=== PATIENT | female | born 1950 | race Caucasian/White ===

== ENCOUNTER → 2016-04-16 | Outpatient (REF) | payer MEDICARE ==
[2016-04-16 17:47] LABS: PERCENT SATURATION 5.3 % (13.2-37.4)
[2016-04-16 17:53] LABS: CORTISOL AM 7.6 UG/DL (4.3-22.4)
[2016-04-21 00:08] LABS: RENIN LEVEL <0.15 ng/mL/hr (.)
== END ==
LOC: M LAB REF 16:20
DX: D64.9 Anemia, unspecified (principal); E87.6 Hypokalemia

== ENCOUNTER → 2016-08-15 | Outpatient (REF) | payer MEDICARE, MEDICAID ==
[2016-08-15 19:25] LABS: FOLATE 8.9 NG/ML; VITAMIN B12 LEVEL > 2000 PG/ML
[2016-08-15 19:42] LABS: FERRITIN 31 NG/ML (8-252); PERCENT SATURATION 17.9 % (13.2-37.4); TOTAL IRON BINDING CAPACITY 369 UG/DL (250-450)
== END ==
LOC: M LAB REF 16:31
PROVIDERS: ATTEND Family Medicine
DX: D64.9 Anemia, unspecified (principal)

== ENCOUNTER → 2017-05-03 | Outpatient (REF) | payer MEDICARE, MEDICAID ==
[2017-05-03 13:41] LABS: PREALBUMIN 25.9 MG/DL (20.0-40.0)
== END ==
LOC: M LAB REF 12:08
DX: R77.0 Abnormality of albumin (principal)
CPT/HCPCS: 84134

== ENCOUNTER → 2017-08-22 | Outpatient (REF) | payer MEDICARE, MEDICAID ==
[2017-08-22 20:02] LABS: PREALBUMIN 31.3 MG/DL (20.0-40.0)
== END ==
LOC: M LAB REF 17:52
DX: R63.4 Abnormal weight loss (principal)
CPT/HCPCS: 84134

== ENCOUNTER 2017-08-28 07:13 | Day surgery (SDC) | payer MEDICARE, MEDICAID ==
[2017-08-28] MEDS: MOXIFLOXACIN IN BSS 0.25MG/0.25ML INTRACAMERAL INJ (OR EYE ONLY)(J2280) As Ordered (06:31)
[~2017-08-28 07:13] MED LIST: ACETAMINOPHEN 325 MG TAB PO; PHENYLEPHRINE HCL 10 % OPHTH. SOL 5ML OD; PROPARACAINE 0.5% OPHTH SOL 15ML OD
[2017-08-28] MEDS ORDERED: TROPICAMIDE 1% OPHTH SOLN 2ML As Ordered (07:19)
[2017-08-28] MEDS ORDERED: CYCLOPENTOLATE 2% OPHTH SOLN 2ML BTL As Ordered (07:19)
[2017-08-28] MEDS ORDERED: PHENYLEPHRINE 2.5% OPHTH SOL 2ML As Ordered (07:19)
[2017-08-28] MEDS ORDERED: OFLOXACIN 0.3 % (OCUFLOX) OPTH SOL 5ML As Ordered (07:19)
[2017-08-28] MEDS ORDERED: TRIMETHOBENZAMIDE 300 MG CAP PO (07:30)
[2017-08-28] MEDS ORDERED: KETOROLAC 0.5% OPHTH SOLN OD (07:30)
[2017-08-28] MEDS: PHENYLEPHRINE 2.5% OPHTH SOL 2ML OD (07:54)
[2017-08-28] MEDS: TROPICAMIDE 1% OPHTH SOLN 2ML OD (07:54)
[2017-08-28] MEDS: CYCLOPENTOLATE 2% OPHTH SOLN 2ML BTL OD (07:54)
[2017-08-28] MEDS: OFLOXACIN 0.3 % (OCUFLOX) OPTH SOL 5ML OD (07:54)
[2017-08-28] MEDS: LIDOCAINE 3.5 % 1ML OPHTH TOPICAL GEL OU (07:55)
[2017-08-28] MEDS ORDERED: fentaNYL 100 MCG/2 ML INJECTION (J3010) As Ordered (08:46)
[2017-08-28] MEDS ORDERED: MIDAZOLAM INJ 2 MG/2 ML VIAL (J2250) As Ordered (08:46)
[2017-08-28] MEDS: TRIAMCINOLONE PRES FR 40 MG/ML 1ML(TRIESENCE)(OR EYE ONLY)(J3300 PER 1MG) As Ordered (08:53)
[2017-08-28] MEDS: POVIDONE-IODINE 5% OPHTH PREP SOL 30ML As Ordered (08:53)
[2017-08-28] MEDS: LIDOCAINE 1% SDV 5 ML VIAL As Ordered (08:54)
[2017-08-28] MEDS: HEALON DUET (HEALON 10MG/ML 0.55ML & HEALON ENDOCOAT 30MG/ML 0.85ML) As Ordered (08:54)
[2017-08-28] MEDS: BSS with VANC/TOB/EPI for EYE CASES IR (08:54)
[2017-08-28] MEDS: AcetaZOLAMIDE 500 MG ER CAP PO (09:31)
[2017-08-28] MEDS ORDERED: LR 1,000 ML IV (09:45)
[2017-08-28] MEDS ORDERED: ONDANSETRON 4MG/2ML VIAL (J2405) IV (09:45)
[2017-08-28] MEDS ORDERED: ACETAMINOPHEN TAB 650MG DOSE (2X325MG) PO (09:45)
== END 2017-08-28 09:43 | disposition home or self-care (01) ==
LOC: M SDC 07:13
DX: H26.9 Unspecified cataract (principal); I10 Essential (primary) hypertension; E78.00 Pure hypercholesterolemia, unspecified; E03.9 Hypothyroidism, unspecified; K21.9 Gastro-esophageal reflux disease without esophagitis; M19.90 Unspecified osteoarthritis, unspecified site; Z79.899 Other long term (current) drug therapy
CPT/HCPCS: 66984

== ENCOUNTER 2017-10-02 06:18 | Day surgery (SDC) | payer MEDICARE, MEDICAID ==
[~2017-10-02 06:18] MED LIST changes: -PHENYLEPHRINE HCL 10 % OPHTH. SOL 5ML OD; -PROPARACAINE 0.5% OPHTH SOL 15ML OD; +SLF 3 ML SYR IV
[2017-10-02] MEDS ORDERED: PHENYLEPHRINE HCL 10 % OPHTH. SOL 5ML OS (07:00)
[2017-10-02] MEDS: LIDOCAINE 3.5 % 1ML OPHTH TOPICAL GEL OU (07:20)
[2017-10-02] MEDS: OFLOXACIN 0.3 % (OCUFLOX) OPTH SOL 5ML OS (07:20)
[2017-10-02] MEDS: PHENYLEPHRINE 2.5% OPHTH SOL 2ML OS (07:20)
[2017-10-02] MEDS: TROPICAMIDE 1% OPHTH SOLN 2ML OS (07:20)
[2017-10-02] MEDS: CYCLOPENTOLATE 2% OPHTH SOLN 2ML BTL OS (07:21)
[2017-10-02] MEDS ORDERED: MIDAZOLAM INJ 2 MG/2 ML VIAL (J2250) As Ordered (08:39)
[2017-10-02] MEDS ORDERED: fentaNYL 100 MCG/2 ML INJECTION (J3010) As Ordered (08:39)
[2017-10-02] MEDS: POVIDONE-IODINE 5% OPHTH PREP SOL 30ML As Ordered (08:42)
[2017-10-02] MEDS: BSS with VANC/TOB/EPI for EYE CASES IR (08:43)
[2017-10-02] MEDS: HEALON DUET (HEALON 10MG/ML 0.55ML & HEALON ENDOCOAT 30MG/ML 0.85ML) As Ordered (08:43)
[2017-10-02] MEDS: LIDOCAINE 1% SDV 5 ML VIAL As Ordered (08:43)
[2017-10-02] MEDS: TRIAMCINOLONE PRES FR 40 MG/ML 1ML(TRIESENCE)(OR EYE ONLY)(J3300 PER 1MG) As Ordered (08:43)
[2017-10-02] MEDS: MOXIFLOXACIN IN BSS 0.25MG/0.25ML INTRACAMERAL INJ (OR EYE ONLY)(J2280) As Ordered (08:43)
[2017-10-02] MEDS ORDERED: TRIMETHOBENZAMIDE 300 MG CAP PO (09:15)
[2017-10-02] MEDS: AcetaZOLAMIDE 500 MG ER CAP PO (09:15)
== END 2017-10-02 09:39 | disposition home or self-care (01) ==
LOC: M SDC 06:18
DX: H25.9 Unspecified age-related cataract (principal); E78.5 Hyperlipidemia, unspecified; E03.9 Hypothyroidism, unspecified; I10 Essential (primary) hypertension; K21.9 Gastro-esophageal reflux disease without esophagitis; Z79.899 Other long term (current) drug therapy
CPT/HCPCS: 66984

== ENCOUNTER 2018-03-25 11:36 | Day surgery (SDC) | payer MEDICARE, MEDICAID ==
[~2018-03-25] VITALS: Ht 170.2 cm; Wt 72.5 kg
[~2018-03-25 11:36] MED LIST changes: -ACETAMINOPHEN 325 MG TAB PO; +AMLO5TAB6 PO; +ATEN50TA2 PO; +ATOR1TAB21 PO; +CALC500T49 PO; +DICL25TA PO; +FURO40TA2 PO; +HYDR-3713 PO; +LEVO25TA5 PO; +MIRA3350 PO; +OMEP20CA3 PO; +POTA1TAB14 PO; +PRAV20TA2 PO; -SLF 3 ML SYR IV; +SUCR1TAB56 PO; +TRAM50TA2 PO; +VITA-182 PO; +VITA500T3 PO
[2018-03-25] MEDS ORDERED: NS 1,000 ML IV ONE (12:45)
[2018-03-25] MEDS ORDERED: LIDOCAINE 2% INJ 100 MG/5 ML SDV (FOR ANES.) As Ordered ONE (13:04)
[2018-03-25] MEDS ORDERED: fentaNYL 100 MCG/2 ML INJECTION (J3010) As Ordered ONE (13:04)
[2018-03-25] MEDS ORDERED: PROPOFOL 200 MG/20 ML VIAL As Ordered ONE (13:04)
--- NOTE | 2018-03-25 13:54 | ROOR ---
Patient Name: Patria Hernandez Procedure Date: 03/25/2018 12:53 PM Date of : 1950 Age: 67 Room: [facility] Gender: Female Note Status: Finalized Procedure: Upper GI endoscopy Indications: Nausea with vomiting Providers: Cornell Smith MD Referring MD: Johnna Blue NP Requesting Provider: Medicines: Monitored Anesthesia Care Complications: No immediate complications. Procedure: Pre-Anesthesia Assessment: - Prior to the procedure, a History and Physical was performed, and patient medications and allergies were reviewed. The patient is competent. The risks and benefits of the procedure and the sedation options and risks were discussed with the patient. All questions were answered and informed consent was obtained. Patient identification and proposed procedure were verified by the physician, the nurse and the anesthesiologist in the procedure room. Mental Status Examination: alert and oriented. Airway Examination: normal oropharyngeal airway and neck mobility. Respiratory Examination: clear to auscultation. CV Examination: normal. Prophylactic Antibiotics: The patient does not require prophylactic antibiotics. Prior Anticoagulants: The patient has taken no previous anticoagulant or antiplatelet agents. ASA Grade Assessment: III - A patient with severe systemic disease. After reviewing the risks and benefits, the patient was deemed in satisfactory condition to undergo the procedure. The anesthesia plan was to use monitored anesthesia care (MAC). Immediately prior to administration of medications, the patient was re-assessed for adequacy to receive sedatives. The heart rate, respiratory rate, oxygen saturations, blood pressure, adequacy of pulmonary ventilation, and response to care were monitored throughout the procedure. The physical status of the patient was re-assessed after the procedure. The Endoscope was introduced through the mouth, and advanced to the jejunum. The upper GI endoscopy was accomplished without difficulty. The patient tolerated the procedure well. Findings: No gross lesions were noted in the entire esophagus. Evidence of a Damon-en-Y anastomosis was found in the stomach. This was characterized by erythema, friable mucosa, inflammation and ulceration. Biopsies were taken with a cold forceps for histology. Verification of patient identification for the specimen was done by the physician and nurse using the patient's name, date and medical record number. Estimated blood loss was minimal. Diffuse severe inflammation characterized by erosions, erythema, friability and shallow ulcerations was found in the gastric fundus and in the gastric body. Biopsies were taken with a cold forceps for histology. A single 10 mm sessile polyp with no bleeding and no stigmata of recent bleeding was found at the anastomosis. The polyp was removed with a cold biopsy forceps. Resection and retrieval were complete. For hemostasis, one hemostatic clip was successfully placed. There was no bleeding at the end of the procedure. A moderate benign-appearing, intrinsic stenosis that was traversed was found in the jejunum. Biopsies were taken with a cold forceps for histology. Impression: - No gross lesions in esophagus. - A Damon-en-Y anastomosis was found, characterized by friable mucosa, inflammation, erythema and ulceration. Biopsied. - Gastritis. Biopsied. - A single gastric polyp. Resected and retrieved. Clip was placed. - Jejunal stenosis. Biopsied. Recommendation: - Patient has a contact number available for emergencies. The signs and symptoms of potential delayed complications were discussed with the patient. Return to normal activities tomorrow. Written discharge instructions were provided to the patient. - Resume previous diet. - Continue present medications. - Await pathology results. - Use Protonix (pantoprazole) 40 mg PO twice daily - to be taken in morning (1/2 hour before breakfast) and at bedtime ( atleast 3 hours after last meal) for 3 months. - No ibuprofen, naproxen, or other non-steroidal anti-inflammatory drugs. - Repeat upper endoscopy in 3 months to check healing. - Based on the biopsy results you will receive a phone call from GI clinic in 2-3 weeks to review the pathology results AND/OR your results will be faxed to your Primary care physician. - Return to primary care physician. Cornell Smith MD Cornell Smith MD 03/25/2018 1:53:57 PM This report has been signed electronically. Number of Addenda: 0 Note Initiated On: 03/25/2018 12:53 PM Estimated Blood Loss: Estimated blood loss was minimal.
[2018-03-25 14:00] VITALS: BP 127/71
[2018-03-25] MEDS ORDERED: PANTOPRAZOLE 40MG INJ (PROTONIX) (C9113) IV ONE (14:00)
== END 2018-03-25 14:20 | disposition home or self-care (01) ==
LOC: M OPP 11:36
PROVIDERS: ATTEND Internal Medicine Gastroenterology
DX: K29.70 Gastritis, unspecified, without bleeding (principal); K31.7 Polyp of stomach and duodenum; K56.699 Other intestinal obstruction unspecified as to partial versus complete obstruction; Z98.84 Bariatric surgery status; R11.2 Nausea with vomiting, unspecified; I10 Essential (primary) hypertension; E03.9 Hypothyroidism, unspecified; Z79.899 Other long term (current) drug therapy
CPT/HCPCS: 43239; 88305; 88342; C9113; J3010

== ENCOUNTER → 2018-03-26 | Outpatient (CLI) | payer MEDICARE, MEDICAID ==
[~2018-03-26] MED LIST changes: +AMLO5TAB4 PO; -AMLO5TAB6 PO
[2018-03-26 11:51] LABS: BASO % 0.5 % (0.0-1.0); EOS % 0.4 % (0.0-3.0); HEMATOCRIT 36.2 % (36.0-47.0); HEMOGLOBIN 11.4 g/dl (12.0-15.5); LYMPH % 11.5 % (24.0-44.0); MEAN CORPUSCULAR HEMOGLOBIN 29.2 pg (27.0-33.0); MEAN CORPUSCULAR HGB CONC 31.5 g/dl (32.0-36.5); MEAN CORPUSCULAR VOLUME 92.6 fl (80.0-96.0); MONO # 0.4 10^3/uL (0.0-0.8); MONO % 4.8 % (0.0-5.0); NEUTROPHILS # 6.9 10^3/uL (1.8-7.7); PLATELET COUNT, AUTOMATED 412 10^3/uL (150-450); RED BLOOD COUNT 3.91 10^6/uL (4.00-5.40); WHITE BLOOD COUNT 8.4 10^3/uL (4.0-10.0)
[2018-03-26 12:24] LABS: BLOOD UREA NITROGEN 16 MG/DL (7-18); CARBON DIOXIDE LEVEL 27 MEQ/L (21-32); CHLORIDE LEVEL 110 MEQ/L (98-107); CREATININE FOR GFR 0.56 MG/DL (0.55-1.30); FERRITIN 50 NG/ML (8-252); GLOMERULAR FILTRATION RATE > 60.0 (>45); GLUCOSE, FASTING 79 MG/DL (70-100); IRON (FE) 51 UG/DL (50-170); PERCENT SATURATION 21.3 % (13.2-45.0); POTASSIUM SERUM 3.5 MEQ/L (3.5-5.1); SODIUM LEVEL 145 MEQ/L (136-145); TOTAL IRON BINDING CAPACITY 240 UG/DL (250-450)
== END ==
LOC: M LAB 11:27
PROVIDERS: ATTEND Internal Medicine Gastroenterology
DX: R11.2 Nausea with vomiting, unspecified (principal); K29.61 Other gastritis with bleeding

== ENCOUNTER → 2018-04-25 | Outpatient (CLI) | payer MEDICARE, MEDICAID ==
[~2018-04-25] MED LIST changes: -AMLO5TAB4 PO; +AMLO5TAB6 PO; +GLUCAGON FOR INJ 1 MG VIAL (J1610) As Ordered ONE; +ISOVUE-370 76% 100ML VIAL (Q9967) As Ordered ONE; +VoLumen 0.1% SUSPENSION 450ML BOTTLE As Ordered ONE
--- NOTE | 2018-04-25 15:45 | REP ---
CT enterography: With IV and oral contrast. History: Abnormal weight loss. Bariatric surgery. Comparison study: February 28, 2016. CT enterography Technique: The patient ingested oral Volumen for PO contrast per protocol. 0.6 mg of intravenous glucagon is administered. 100 ml of Isovue 370 is given intravenously for intravenous contrast. Helical scanning is acquired. Arterial phase and delayed phase imaging was acquired. Thick slab coronal and sagittal MIP images are generated. In addition coronal and sagittal multiplanar re-formation images are generated and reviewed along with axial images. CT enterography findings: Preliminary digital framing carpenter radiograph demonstrates an unremarkable bowel gas pattern. There are multiple surgical clips in the upper abdomen on the right and the left. A granuloma is seen in the left base. Axial CT images confirm the densely calcified benign granuloma in the left lower lobe and a second granuloma which is smaller a little more laterally. Both of these are unchanged from the February 2016 prior study. There is mild diffuse fatty infiltration of the liver. No focal liver mass lesion is seen. The gallbladder surgically absent. There is spray artifact from the numerous sutures in the left upper quadrant. No splenic abnormality is seen. No abnormal fluid collection is seen. No adrenal lesion is observed. Pancreas appears unremarkable. The kidneys enhance symmetrically and are morphologically intact. There is a subcentimeter cyst in the upper pole cortex of the left kidney. 8 mm. There is an intrarenal calculus in the lower pole collecting system of the left kidney 3 mm. There is no evidence of hydronephrosis. No retroperitoneal mass or adenopathy is seen. The celiac and superior mesenteric axes are patent without evidence of stenosis. The inferior mesenteric artery is patent. There is no evidence of bowel wall thickening or hyper enhancement. No obstructive lesion is seen. Maximum intensity projection images show no evidence of mucosal lesion or mass in the GI tract. There are degenerative spondylosis changes and scoliosis in the lumbar spine. No bony destructive lesion is appreciated. There is an old healed fracture of the inferior pubic ramus on the right and the superior pubic ramus on the right. No acute fracture is seen. Impression: Mild fatty infiltration of the liver. Status post gastric bypass. Intrarenal nephrolithiasis lower pole left kidney. Small left renal cyst. Tortuous aorta and lumbar scoliosis. Otherwise negative CT enterography. Electronically Signed by Corbin Olguin MD 04/25/2018 08:00 P
== END ==
LOC: M RAD 09:19
PROVIDERS: ATTEND Internal Medicine Gastroenterology
DX: R63.4 Abnormal weight loss (principal); Z98.84 Bariatric surgery status
CPT/HCPCS: 74177; J1610; Q9967

== ENCOUNTER → 2018-05-01 | Outpatient (REF) | payer MEDICARE, MEDICAID ==
[~2018-05-01] MED LIST changes: -GLUCAGON FOR INJ 1 MG VIAL (J1610) As Ordered ONE; -ISOVUE-370 76% 100ML VIAL (Q9967) As Ordered ONE; -VoLumen 0.1% SUSPENSION 450ML BOTTLE As Ordered ONE
[2018-05-01 16:22] LABS: ALBUMIN 2.4 GM/DL (3.2-5.2); ALT/SGPT 18 U/L (12-78); BILIRUBIN,TOTAL 0.3 MG/DL (0.2-1.0); BLOOD UREA NITROGEN 18 MG/DL (7-18); CALCIUM LEVEL 8.5 MG/DL (8.8-10.2); CARBON DIOXIDE LEVEL 26 MEQ/L (21-32); CHLORIDE LEVEL 105 MEQ/L (98-107); CREATININE FOR GFR 0.91 MG/DL (0.55-1.30); GLOMERULAR FILTRATION RATE > 60.0 (>45); GLUCOSE, FASTING 87 MG/DL (70-100); POTASSIUM SERUM 3.3 MEQ/L (3.5-5.1); SODIUM LEVEL 142 MEQ/L (136-145); TOTAL PROTEIN 4.7 GM/DL (6.4-8.2)
[2018-05-05 07:56] LABS: VITAMIN B12 LEVEL > 2000 PG/ML (232-1245)
== END ==
LOC: M SFHCPLAZ 13:59
PROVIDERS: ATTEND Nurse Practitioner Adult Health
DX: I10 Essential (primary) hypertension (principal); E03.9 Hypothyroidism, unspecified; E53.8 Deficiency of other specified B group vitamins
CPT/HCPCS: 36415; 80053; 82607; 84443; G0463

== ENCOUNTER 2018-06-06 10:36 | Day surgery (SDC) | payer MEDICARE, MEDICAID ==
[~2018-06-06] VITALS: Ht 170.2 cm; Wt 64.4 kg
[~2018-06-06 10:36] MED LIST changes: +NS 1,000 ML IV ONE; +PANT40TA3 PO; +RANI150T PO; +ZOFR4TAB16 PO
[2018-06-06] MEDS ORDERED: PROPOFOL 200 MG/20 ML VIAL As Ordered ONE ×2 (11:41→13:11)
[2018-06-06] MEDS ORDERED: LIDOCAINE 2% INJ 100 MG/5 ML SDV (FOR ANES.) As Ordered ONE (11:42)
[2018-06-06] MEDS ORDERED: fentaNYL 100 MCG/2 ML INJECTION (J3010) As Ordered ONE (12:54)
--- NOTE | 2018-06-06 13:39 | ROOR ---
Patient Name: Patria Hernandez Procedure Date: 06/06/2018 12:50 PM Date of : 1950 Age: 68 Room: [facility] Gender: Female Note Status: Finalized Procedure: Upper GI endoscopy Indications: Management of operative complication: Dilation of anastomotic stricture, Persistent vomiting Providers: Cornell Smith MD Referring MD: Johnna Blue NP Requesting Provider: Medicines: Monitored Anesthesia Care Complications: No immediate complications. Procedure: Pre-Anesthesia Assessment: - Prior to the procedure, a History and Physical was performed, and patient medications and allergies were reviewed. The patient is competent. The risks and benefits of the procedure and the sedation options and risks were discussed with the patient. All questions were answered and informed consent was obtained. Patient identification and proposed procedure were verified by the physician, the nurse and the anesthesiologist in the procedure room. Mental Status Examination: alert and oriented. Airway Examination: normal oropharyngeal airway and neck mobility. Respiratory Examination: clear to auscultation. CV Examination: normal. Prophylactic Antibiotics: The patient does not require prophylactic antibiotics. Prior Anticoagulants: The patient has taken no previous anticoagulant or antiplatelet agents. ASA Grade Assessment: III - A patient with severe systemic disease. After reviewing the risks and benefits, the patient was deemed in satisfactory condition to undergo the procedure. The anesthesia plan was to use monitored anesthesia care (MAC). Immediately prior to administration of medications, the patient was re-assessed for adequacy to receive sedatives. The heart rate, respiratory rate, oxygen saturations, blood pressure, adequacy of pulmonary ventilation, and response to care were monitored throughout the procedure. The physical status of the patient was re-assessed after the procedure. The Endoscope was introduced through the mouth, and advanced to the efferent jejunal loop. The upper GI endoscopy was accomplished without difficulty. The patient tolerated the procedure well. Findings: The examined esophagus was normal. Evidence of a gastrojejunostomy was found in the anastomosis. This was characterized by congestion, erosion, erythema, inflammation and ulceration. An endoclip was found at the anastomosis. A severe benign-appearing, intrinsic stenosis that was traversed was found in the jejunum. A TTS dilator was passed through the scope. Dilation with a 10-11-12 mm anastomotic balloon dilator was performed. The dilation site was examined and showed mild mucosal disruption, moderate improvement in luminal narrowing, no bleeding and no perforation. Impression: - Normal esophagus. - A gastrojejunostomy was found, characterized by inflammation, congestion, erosion, erythema and ulceration. - An endoclip was found in the stomach. - Jejunal stenosis. Dilated. - No specimens collected. Recommendation: - Patient has a contact number available for emergencies. The signs and symptoms of potential delayed complications were discussed with the patient. Return to normal activities tomorrow. Written discharge instructions were provided to the patient. - Full liquid diet for 2 days, then advance as tolerated to pureed diet. - Continue present medications. - Follow an antireflux regimen. - Use Protonix (pantoprazole) 40 mg PO twice daily - to be taken in morning (1/2 hour before breakfast) and at bedtime ( atleast 3 hours after last meal) for 3 months. 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 for 3 months. - Use sucralfate suspension 1 gram PO QID for 3 months. - Repeat upper endoscopy in 3 months for retreatment. - Return to GI clinic in [facility] (address [address], [address], [place], [address]) in 4 -- 6 weeks. Please call GI clinic @ [phone] for apppointment date and time. - Return to primary care physician. Cornell Smith MD Cornell Smith MD 06/06/2018 1:39:35 PM This report has been signed electronically. Number of Addenda: 0 Note Initiated On: 06/06/2018 12:50 PM Estimated Blood Loss: Estimated blood loss was minimal.
[2018-06-06 14:10] VITALS: BP 123/75
== END 2018-06-06 14:12 | disposition home or self-care (01) ==
LOC: M OPP 10:36
PROVIDERS: ATTEND Internal Medicine Gastroenterology
DX: Z98.0 Intestinal bypass and anastomosis status (principal); T18.2XXA Foreign body in stomach, initial encounter; K56.699 Other intestinal obstruction unspecified as to partial versus complete obstruction; K91.89 Other postprocedural complications and disorders of digestive system; R11.10 Vomiting, unspecified; Z79.899 Other long term (current) drug therapy; Z98.84 Bariatric surgery status; Y92.89 Other specified places as the place of occurrence of the external cause
CPT/HCPCS: 43245; J3010

== ENCOUNTER 2018-07-21 12:05 | Day surgery (SDC) | payer MEDICARE, MEDICAID ==
[~2018-07-21] VITALS: Ht 170.2 cm; Wt 63.0 kg
[~2018-07-21 12:05] MED LIST changes: +CALC500T68 PO; +LR 1,000 ML IV ONE; -NS 1,000 ML IV ONE; +VITAD1000T PO
[2018-07-21] MEDS ORDERED: PROPOFOL 500 MG/50 ML VIAL As Ordered ONE (13:22)
[2018-07-21] MEDS ORDERED: LIDOCAINE 2% INJ 100 MG/5 ML SDV (FOR ANES.) As Ordered ONE (13:22)
[2018-07-21] MEDS ORDERED: fentaNYL 100 MCG/2 ML INJECTION (J3010) As Ordered ONE (13:46)
[2018-07-21] MEDS ORDERED: ISOVUE-300 61% 50ML VIAL (Q9967) As Ordered ONE (13:50)
[2018-07-21] MEDS ORDERED: PROPOFOL 200 MG/20 ML VIAL As Ordered ONE (15:00)
[2018-07-21] MEDS ORDERED: PHENYLephrine HCL 500 MCG/5 ML (100MCG/ML) SYRINGE (J2370) As Ordered ONE (15:17)
[2018-07-21] MEDS ORDERED: ONDANSETRON 4MG/2ML VIAL (J2405) IV PRN (16:00)
[2018-07-21] MEDS ORDERED: HYDROMORPHONE HCL 0.5 MG/ 0.5 ML SYRINGE (J1170 PER 1) IV PRN (16:00)
[2018-07-21] MEDS ORDERED: fentaNYL 100 MCG/2 ML INJECTION (J3010) IV PRN (16:00)
[2018-07-21] MEDS ORDERED: PERCOCET 5MG/325MG TAB PO PRN (16:00)
[2018-07-21] MEDS ORDERED: LR 1,000 ML IV SCH (16:00)
--- NOTE | 2018-07-21 16:01 | REP ---
TWO-VIEW ABDOMEN: 50 views. HISTORY: Gastrojejunal anastomotic stenosis. 47 seconds of fluoroscopy time was utilized. FINDINGS: A sequence of 50 last image hold fluoroscopically obtained intraprocedural spot radiographs document endoscopic cannulation and manipulation. Electronically Signed by Corbin Olguin MD 07/21/2018 04:54 P
--- NOTE | 2018-07-21 16:27 | ROOR ---
Patient Name: Patria Hernandez Procedure Date: 07/21/2018 2:00 PM Date of : 1950 Age: 68 Room: Main OR Gender: Female Note Status: Finalized Procedure: Upper GI endoscopy Indications: Post-bariatric anastomotic stenosis, For therapy of post-bariatric anastomotic stenosis, Management of operative complication: Dilation of anastomotic stricture Providers: oCrnell Smith MD Referring MD: Johnna ALVARADO NP Requesting Provider: Medicines: Monitored Anesthesia Care Complications: No immediate complications. Procedure: Pre-Anesthesia Assessment: - Prior to the procedure, a History and Physical was performed, and patient medications and allergies were reviewed. The patient is competent. The risks and benefits of the procedure and the sedation options and risks were discussed with the patient. All questions were answered and informed consent was obtained. Patient identification and proposed procedure were verified by the physician, the nurse and the anesthesiologist in the procedure room. Mental Status Examination: alert and oriented. Airway Examination: normal oropharyngeal airway and neck mobility. Respiratory Examination: clear to auscultation. CV Examination: normal. Prophylactic Antibiotics: The patient does not require prophylactic antibiotics. Prior Anticoagulants: The patient has taken no previous anticoagulant or antiplatelet agents. ASA Grade Assessment: II - A patient with mild systemic disease. After reviewing the risks and benefits, the patient was deemed in satisfactory condition to undergo the procedure. The anesthesia plan was to use monitored anesthesia care (MAC). Immediately prior to administration of medications, the patient was re-assessed for adequacy to receive sedatives. The heart rate, respiratory rate, oxygen saturations, blood pressure, adequacy of pulmonary ventilation, and response to care were monitored throughout the procedure. The physical status of the patient was re-assessed after the procedure. The Endoscope was introduced through the mouth, and advanced to the efferent jejunal loop. The upper GI endoscopy was accomplished without difficulty. The patient tolerated the procedure well. Findings: No gross lesions were noted in the entire esophagus. Evidence of a Damon-en-Y anastomosis was found in the gastric body. This was characterized by moderate stenosis, ulceration and an intact staple line. A fistula is noted, which was connecting to remanant stomach, confirmed by injecting contrast though the fistula using sphincterotome. No leakage of contrast. An 80 mm long 20/22 mm deployed diameter Hanaro ( olympus) stent was placed at the gastro-jejunal and jejunal stricture due to stricutres being non reponsive to balloon dilations. The stent was successfully placed. For location marking and fixing the stent in place, two hemostatic clips were successfully placed in stomach/ proximal end of stent. There was no bleeding at the end of the procedure. A severe benign-appearing, intrinsic stenosis that was traversed was found in the jejunum. Impression: - No gross lesions in esophagus. - A Damon-en-Y anastomosis was found, characterized by moderate stenosis, an intact staple line and ulceration. A covered metal stent stent was placed. Clips placed to secure stent. - Jejunal stenosis. - No specimens collected. Recommendation: - Patient has a contact number available for emergencies. The signs and symptoms of potential delayed complications were discussed with the patient. Return to normal activities tomorrow. Written discharge instructions were provided to the patient. - The patient will be observed post-procedure, until all discharge criteria are met. - Clear liquid diet for 1 day, then advance as tolerated to soft diet. - Continue present medications. - Await pathology results. - Repeat upper endoscopy in 3 weeks stent removal and if needed re-dilate strictures. - Telephone GI clinic to schedule appointment in 2 weeks. - Return to primary care physician. Cornell Smith MD Cornell Smith MD 07/21/2018 4:26:48 PM Electronically signed by Cornell Smith MD Number of Addenda: 0 Note Initiated On: 07/21/2018 2:00 PM Estimated Blood Loss: Estimated blood loss was minimal.
[2018-07-21 17:00] VITALS: BP 108/60
[2018-07-21] MEDS ORDERED: CEPACOL LOZENGE PO PRN (17:00)
== END 2018-07-21 17:00 | disposition home or self-care (01) ==
LOC: M SDC 12:05
PROVIDERS: ATTEND Internal Medicine Gastroenterology
DX: K91.89 Other postprocedural complications and disorders of digestive system (principal); Z98.84 Bariatric surgery status; K95.89 Other complications of other bariatric procedure; K56.699 Other intestinal obstruction unspecified as to partial versus complete obstruction; I10 Essential (primary) hypertension; E78.5 Hyperlipidemia, unspecified; E03.9 Hypothyroidism, unspecified; K21.9 Gastro-esophageal reflux disease without esophagitis; Z99.3 Dependence on wheelchair; Z79.899 Other long term (current) drug therapy
CPT/HCPCS: 43266; 76000; C1874; J2370; J3010; Q9967

== ENCOUNTER → 2018-07-28 | Outpatient (CLI) | payer MEDICARE, MEDICAID ==
[~2018-07-28] MED LIST changes: -LR 1,000 ML IV ONE
--- NOTE | 2018-07-28 11:29 | REP ---
ABDOMEN SERIES: Three views. HISTORY: Status post bariatric surgery. Endoscopically placed gastrointestinal stent. For stent visualization. FINDINGS: Upright AP and bilateral oblique radiographs of the abdomen are obtained as requested. There are multiple surgical clips and sutures in the upper abdomen. A left upper quadrant stent is noted in place as well. The bowel gas pattern is unremarkable. IMPRESSION: Surgical changes. Gastrointestinal stent noted in the upper central abdomen just to the left of midline. Scoliosis seen. Electronically Signed by Corbin Olguin MD 07/28/2018 11:41 A
== END ==
LOC: M RAD 10:04
PROVIDERS: ATTEND Internal Medicine Gastroenterology
DX: Z98.84 Bariatric surgery status (principal); K56.699 Other intestinal obstruction unspecified as to partial versus complete obstruction; M41.9 Scoliosis, unspecified

== ENCOUNTER 2018-08-05 11:40 | Day surgery (SDC) | payer MEDICARE, MEDICAID ==
[~2018-08-05] VITALS: Ht 170.2 cm; Wt 69.4 kg
[~2018-08-05 11:40] MED LIST changes: +LR 1,000 ML IV ONE; +NS 1,000 ML IV ONE
[2018-08-05] MEDS ORDERED: fentaNYL 100 MCG/2 ML INJECTION (J3010) As Ordered ONE (14:23)
[2018-08-05] MEDS ORDERED: LIDOCAINE 2% INJ 100 MG/5 ML SDV (FOR ANES.) As Ordered ONE (14:24)
[2018-08-05] MEDS ORDERED: PROPOFOL 200 MG/20 ML VIAL As Ordered ONE ×2 (14:26→17:21)
[2018-08-05] MEDS ORDERED: ONDANSETRON 4MG/2ML VIAL (J2405) As Ordered ONE (16:30)
--- NOTE | 2018-08-05 18:17 | ROOR ---
Patient Name: Patria Hernandez Procedure Date: 08/05/2018 2:10 PM Date of : 1950 Age: 68 Room: Main OR Gender: Female Note Status: Finalized Procedure: Upper GI endoscopy Indications: Dysphagia Providers: Cornell Smith MD Referring MD: 1. No Referring Physician 1. No Referring Physician, Admin. Requesting Provider: Medicines: Monitored Anesthesia Care Complications: No immediate complications. Procedure: Pre-Anesthesia Assessment: - Prior to the procedure, a History and Physical was performed, and patient medications and allergies were reviewed. The patient is competent. The risks and benefits of the procedure and the sedation options and risks were discussed with the patient. All questions were answered and informed consent was obtained. Patient identification and proposed procedure were verified by the physician, the nurse and the anesthesiologist in the procedure room. Mental Status Examination: alert and oriented. Airway Examination: normal oropharyngeal airway and neck mobility. Respiratory Examination: clear to auscultation. CV Examination: normal. Prophylactic Antibiotics: The patient does not require prophylactic antibiotics. Prior Anticoagulants: The patient has taken no previous anticoagulant or antiplatelet agents. ASA Grade Assessment: III - A patient with severe systemic disease. After reviewing the risks and benefits, the patient was deemed in satisfactory condition to undergo the procedure. The anesthesia plan was to use monitored anesthesia care (MAC). Immediately prior to administration of medications, the patient was re-assessed for adequacy to receive sedatives. The heart rate, respiratory rate, oxygen saturations, blood pressure, adequacy of pulmonary ventilation, and response to care were monitored throughout the procedure. The physical status of the patient was re-assessed after the procedure. The Endoscope was introduced through the mouth, and advanced to the efferent jejunal loop. The upper GI endoscopy was accomplished without difficulty. The patient tolerated the procedure well. Findings: No gross lesions were noted in the entire esophagus. Evidence of a gastric bypass was found. A gastric pouch with a small size was found. The gastrojejunal anastomosis was characterized by edema, inflammation, ulceration and an intact staple line. A metal stent was found at the anastomosis. The endoscope was removed, and an overtube with cap was fitted. The scope and overtube were then reinserted via the mouth and advanced to the stomach to aid in foreign body removal. Stent removal was accomplished with a rat-toothed forceps. For hemostasis, four hemostatic clips were successfully placed. There was no bleeding at the end of the procedure. A 5 mm fistula was found at the anastomosis. To close the fistula, two hemostatic clips were successfully placed. Segmental moderate inflammation, characterized by erosions, erythema and friability was found in the jejunum. Impression: - No gross lesions in esophagus. - Gastric bypass with a small-sized pouch. Gastrojejunal anastomosis characterized by edema, inflammation, ulceration and an intact staple line. - Pre-existing gastric stent, removed. Clips were placed. - Gastric fistula. - Suspected jejunal inflammation characterized by erosions, erythema and friability. - An overtube with cap was used to aid in foreign body removal. Recommendation: - Patient has a contact number available for emergencies. The signs and symptoms of potential delayed complications were discussed with the patient. Return to normal activities tomorrow. Written discharge instructions were provided to the patient. - NPO for 1 day, then advance as tolerated to clear liquid diet for 2 days. - Do an upper GI series in 3 days. - Advance diet as tolerated after the UGI series to pureed diet. - Use Protonix (pantoprazole) 40 mg PO twice daily - to be taken in morning (1/2 hour before breakfast) and at bedtime ( atleast 3 hours after last meal) for 3 months. 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 for 3 months. - Return to GI clinic 1 - 2 weeks. Please call GI clinic @ [phone] for apppointment date and time. - Return to primary care physician. Cornell Smith MD Cornell Smith MD 08/05/2018 6:17:02 PM Electronically signed by Cornell Smith MD Number of Addenda: 0 Note Initiated On: 08/05/2018 2:10 PM Estimated Blood Loss: Estimated blood loss was minimal.
[2018-08-05 18:50] VITALS: BP 145/72
== END 2018-08-05 18:58 | disposition home or self-care (01) ==
LOC: M SDC 11:40
PROVIDERS: ATTEND Internal Medicine Gastroenterology
DX: R10.13 Epigastric pain (principal); K28.9 Gastrojejunal ulcer, unspecified as acute or chronic, without hemorrhage or perforation; K31.6 Fistula of stomach and duodenum; K63.89 Other specified diseases of intestine; I10 Essential (primary) hypertension; E78.5 Hyperlipidemia, unspecified; E03.9 Hypothyroidism, unspecified; F32.9 Major depressive disorder, single episode, unspecified; R11.10 Vomiting, unspecified; R63.4 Abnormal weight loss; R06.83 Snoring; R29.898 Other symptoms and signs involving the musculoskeletal system; Z79.899 Other long term (current) drug therapy; Z97.8 Presence of other specified devices; Z98.84 Bariatric surgery status; Z99.3 Dependence on wheelchair; Z96.1 Presence of intraocular lens; Z98.41 Cataract extraction status, right eye; Z98.42 Cataract extraction status, left eye

== ENCOUNTER → 2018-08-12 | Outpatient (CLI) | payer MEDICARE, MEDICAID ==
[~2018-08-12] MED LIST changes: +GASTROGRAFIN SOLUTION 30ML (Q9963) As Ordered ONE; -LR 1,000 ML IV ONE; -NS 1,000 ML IV ONE
--- NOTE | 2018-08-13 10:43 | REP ---
Esophagram/Upper GI Air Contrast/ SBFT The procedure was performed by XOCHILT Contreras, under the erect supervision of Dr. Olguin. The images were reviewed with Dr. Olguin. The chicken handler film shows a hazy infiltrate at the right lung base. Differentials could include pneumonia or other parenchymal disease, a follow-up the chest x-ray or chest CT is recommended. Multiple surgical clips are also noted consistent with the patient's history of gastric bypass surgery. Smaller surgical clips are noted at the jejunostomy consistent with the patient's most recent surgical history. Liquid barium was given in the prone oblique position in order to accommodate the patient's motility issues. The oral and pharyngeal stages of deglutition were unremarkable. Esophageal transport is efficient and there is no esophagitis, stricture, or mucosal ring noted. There there is no hiatal hernia noted. Gastroesophageal reflux was noted throughout the course of the exam. The gastric jejunal ostomy is patent with multiple redundant loops. No extravasation or obstruction was noted. There is no gastritis, neoplasm, ulcer disease noted. The visualized portion of the proximal small bowel appears normal in course and caliber. There is no peptic ulcer disease, or neoplasm noted. Fairly after the additional administration of barium for the small bowel portion of the exam. The patient vomited up roughly 200 ml of contrast. The barium column was followed through the small bowel to the level of the terminal ileum. Imaging of the small bowel and terminal ileum was limited due to the lack of contrast material. During fluoroscopy gentle palpation shows all loops are freely mobile and pliable. There are no fixed or angulated loops. The small bowel mucosal pattern is normal in course and caliber. There is no transition to set suggest a partial small-bowel obstruction. Spot filming of the terminal ileum shows it to be unremarkable. Impression; 1. Incidental finding of a hazy infiltrate at the right lung base recommended follow-up chest x-ray or chest CT. 2. Gastroesophageal reflux. 3. Limited but unremarkable small bowel follow-through. 0.6 minutes of fluoroscopy time was utilized for this procedure. Reviewed by XOCHILT Perez 08/13/2018 09:36 A Electronically Signed by Corbin Olguin MD 08/13/2018 10:35 A
== END ==
LOC: M RAD 10:50
PROVIDERS: ATTEND Internal Medicine Gastroenterology
DX: K21.9 Gastro-esophageal reflux disease without esophagitis (principal); R91.8 Other nonspecific abnormal finding of lung field
CPT/HCPCS: 74241; 74250; Q9963

== ENCOUNTER → 2018-08-18 | Outpatient (CLI) | payer MEDICARE, MEDICAID ==
[~2018-08-18] MED LIST changes: +ATEN50TA2; +D31000CA4 PO; -GASTROGRAFIN SOLUTION 30ML (Q9963) As Ordered ONE; +LEVA750T7 PO; +PRAV20TA2
== END ==
LOC: M PT 14:02
PROVIDERS: ATTEND Nurse Practitioner Adult Health
DX: M21.061 Valgus deformity, not elsewhere classified, right knee (principal); M21.062 Valgus deformity, not elsewhere classified, left knee

== ENCOUNTER → 2018-09-23 | Outpatient (CLI) | payer MEDICARE, MEDICAID ==
--- NOTE | 2018-09-23 11:40 | REP ---
PA and lateral chest: Comparison is 08/23/2018. There is a persisting pleural-based mass along the right lateral chest wall accompanied by effacement right costophrenic angle and focal increased density inferolaterally in the right lung. These findings are similar to the prior study and are nonspecific. This could represent unusual loculated pleural effusion or lobulated pleural mass. There is increased density in the right hilus. Follow-up CT is recommended for further evaluation. There is a stable nodule in the left lower lobe, unchanged from 05/12/2015, likely a stable granuloma. The left lung is otherwise clear. Cardiac size is normal. Impression: Mass versus loculated effusion inferolaterally in the right lung. Increased density in the right hilus. Findings are similar to 08/23/2018. Chest CT follow-up is recommended. Stable granuloma in the left lung. Electronically Signed by Lei Major MD 09/23/2018 11:30 A
== END ==
LOC: M RAD 10:04
PROVIDERS: ATTEND Nurse Practitioner Adult Health
DX: R91.8 Other nonspecific abnormal finding of lung field (principal)

== ENCOUNTER → 2018-10-06 | Outpatient (CLI) | payer MEDICARE, MEDICAID ==
[~2018-10-06] MED LIST changes: -ATEN50TA2; +CEFU1TAB22 PO; +CYAN500T8 PO; -OMEP20CA3 PO; +OMEP20CA4 PO; -PRAV20TA2; -VITA500T3 PO
--- NOTE | 2018-10-06 07:35 | REP ---
Clinical: Follow up pneumonia. Comparison: Chest x-ray dated 09/23/2018. Findings: Moderate to significant areas of consolidation involving the right upper lobe and to a lesser extent the adjacent right middle lobe and right lower lobe along with moderate partially loculated right pleural effusion. Reactive mediastinal and hilar adenopathy is appreciated. Calcified hilar lymph node and pulmonary nodules are most consistent with chronic granulomatous disease. Atherosclerotic changes to the thoracic aorta and coronary arteries noted without aortic aneurysm or cardiomegaly. No pericardial effusion. Musculoskeletal structures demonstrate degenerative changes without focal osseous abnormality. Impression: 1. Moderate areas of consolidation involving the right upper lobe and adjacent portions of the right middle lobe and right lower lobe along with moderate partially loculated right pleural effusion. Reactive adenopathy noted. 2. Evidence for chronic granulomatous disease including calcified hilar lymph nodes and pulmonary nodules. Electronically Signed by Tico Overton MD 10/06/2018 07:27 A
== END ==
LOC: M RAD 07:05
PROVIDERS: ATTEND Nurse Practitioner Adult Health
DX: R91.8 Other nonspecific abnormal finding of lung field (principal); J90 Pleural effusion, not elsewhere classified; I70.0 Atherosclerosis of aorta; I25.10 Atherosclerotic heart disease of native coronary artery without angina pectoris

== ENCOUNTER → 2018-10-13 | Outpatient (REF) | payer MEDICARE, MEDICAID ==
[~2018-10-13] MED LIST changes: +ATEN50TA2; -CEFU1TAB22 PO; -CYAN500T8 PO; +OMEP20CA3 PO; -OMEP20CA4 PO; +PRAV20TA2; +VITA500T3 PO
[2018-10-13 17:37] LABS: ALBUMIN 1.4 GM/DL (3.2-5.2); ALT/SGPT 8 U/L (12-78); BILIRUBIN,TOTAL 0.4 MG/DL (0.2-1.0); BLOOD UREA NITROGEN 8 MG/DL (7-18); CALCIUM LEVEL 7.9 MG/DL (8.8-10.2); CARBON DIOXIDE LEVEL 29 MEQ/L (21-32); CHLORIDE LEVEL 104 MEQ/L (98-107); CREATININE FOR GFR 0.57 MG/DL (0.55-1.30); GLOMERULAR FILTRATION RATE > 60.0 (>45); GLUCOSE, FASTING 78 MG/DL (70-100); POTASSIUM SERUM 3.4 MEQ/L (3.5-5.1); SODIUM LEVEL 141 MEQ/L (136-145); TOTAL PROTEIN 5.3 GM/DL (6.4-8.2)
[2018-10-13 17:47] LABS: BASO % 0.1 % (0.0-1.0); EOS % 0.1 % (0.0-3.0); HEMATOCRIT 26.9 % (36.0-47.0); HEMOGLOBIN 7.6 g/dl (12.0-15.5); LYMPH % 5.5 % (24.0-44.0); MEAN CORPUSCULAR HEMOGLOBIN 23.9 pg (27.0-33.0); MEAN CORPUSCULAR HGB CONC 28.3 g/dl (32.0-36.5); MEAN CORPUSCULAR VOLUME 84.6 fl (80.0-96.0); MONO # 1.3 10^3/uL (0.0-0.8); MONO % 7.3 % (0.0-5.0); NEUTROPHILS # 15.1 10^3/uL (1.8-7.7); NEUTROPHILS % 86.4 % (36.0-66.0); RED BLOOD COUNT 3.18 10^6/uL (4.00-5.40); WHITE BLOOD COUNT 17.4 10^3/uL (4.0-10.0)
[2018-10-13 18:18] LABS: PLATELET COUNT, AUTOMATED 1039 10^3/uL (150-450)
== END ==
LOC: M SFHCPLAZ 15:04
PROVIDERS: ATTEND Nurse Practitioner Adult Health
DX: R93.89 Abnormal findings on diagnostic imaging of other specified body structures (principal)

== ENCOUNTER → 2018-10-15 | Outpatient (REF) | payer MEDICARE, MEDICAID ==
[~2018-10-15] MED LIST changes: -ATEN50TA2; +CEFU1TAB22 PO; +CHOL100029 PO; +CYAN500T8 PO; +LASI40TA9 PO; +OMEP1CAP73 PO; -OMEP20CA3 PO; -PRAV20TA2; -VITA500T3 PO; -VITAD1000T PO
[2018-10-15 15:20] LABS: INR 1.28; PARTIAL THROMBOPLASTIN TIME 50.7 SECONDS (25.0-38.4); PROTHROMBIN TIME 15.7 SECONDS (11.8-14.0)
== END ==
LOC: M LAB REF 12:57
PROVIDERS: ATTEND Internal Medicine Pulmonary Disease
DX: R91.8 Other nonspecific abnormal finding of lung field (principal)

== ENCOUNTER → 2018-10-27 | Outpatient (REF) | payer MEDICARE, MEDICAID ==
[~2018-10-27] MED LIST changes: -CHOL100029 PO; -OMEP1CAP73 PO; +OMEP20CA4 PO; +VITAD1000T PO
[2018-10-27 17:45] LABS: BASO # 0.1 10^3/uL (0.0-0.2); BASO % 1.8 % (0.0-1.0); EOS # 0.1 10^3/uL (0.0-0.50); EOS % 1.7 % (0.0-3.0); HEMATOCRIT 33.5 % (36.0-47.0); HEMOGLOBIN 9.6 g/dl (12.0-15.5); LYMPH # 1.1 10^3/uL (1.5-4.5); LYMPH % 15.3 % (24.0-44.0); MEAN CORPUSCULAR HEMOGLOBIN 25.7 pg (27.0-33.0); MEAN CORPUSCULAR HGB CONC 28.7 g/dl (32.0-36.5); MEAN CORPUSCULAR VOLUME 89.6 fl (80.0-96.0); MONO # 0.6 10^3/uL (0.0-0.8); MONO % 8.8 % (0.0-5.0); NEUTROPHILS # 5.1 10^3/uL (1.8-7.7); NEUTROPHILS % 71.8 % (36.0-66.0); PLATELET COUNT, AUTOMATED 478 10^3/uL (150-450); RED BLOOD COUNT 3.74 10^6/uL (4.00-5.40); WHITE BLOOD COUNT 7.1 10^3/uL (4.0-10.0)
[2018-10-27 17:58] LABS: BLOOD UREA NITROGEN 9 MG/DL (7-18); CALCIUM LEVEL 7.8 MG/DL (8.8-10.2); CARBON DIOXIDE LEVEL 31 MEQ/L (21-32); CHLORIDE LEVEL 107 MEQ/L (98-107); CREATININE FOR GFR 0.73 MG/DL (0.55-1.30); GLOMERULAR FILTRATION RATE > 60.0 (>45); GLUCOSE, FASTING 70 MG/DL (70-100); POTASSIUM SERUM 3.9 MEQ/L (3.5-5.1); SODIUM LEVEL 144 MEQ/L (136-145)
== END ==
LOC: M LAB REF 16:57
PROVIDERS: ATTEND Internal Medicine
DX: J90 Pleural effusion, not elsewhere classified (principal)

== ENCOUNTER → 2018-11-03 | Outpatient (REF) | payer MEDICARE, MEDICAID ==
[2018-11-03 13:21] LABS: BLOOD UREA NITROGEN 8 MG/DL (7-18); CALCIUM LEVEL 8.4 MG/DL (8.8-10.2); CARBON DIOXIDE LEVEL 31 MEQ/L (21-32); CHLORIDE LEVEL 109 MEQ/L (98-107); CREATININE FOR GFR 0.46 MG/DL (0.55-1.30); GLOMERULAR FILTRATION RATE > 60.0 (>45); GLUCOSE, FASTING 61 MG/DL (70-100); POTASSIUM SERUM 3.9 MEQ/L (3.5-5.1); SODIUM LEVEL 145 MEQ/L (136-145)
[2018-11-03 13:29] LABS: BASO # 0.2 10^3/uL (0.0-0.2); EOS # 0.1 10^3/uL (0.0-0.50); EOS % 1.4 % (0.0-3.0); HEMATOCRIT 32.8 % (36.0-47.0); HEMOGLOBIN 9.5 g/dl (12.0-15.5); LYMPH % 19.9 % (24.0-44.0); MEAN CORPUSCULAR HEMOGLOBIN 26.8 pg (27.0-33.0); MEAN CORPUSCULAR VOLUME 92.7 fl (80.0-96.0); MONO # 0.5 10^3/uL (0.0-0.8); MONO % 10.9 % (0.0-5.0); NEUTROPHILS # 3.1 10^3/uL (1.8-7.7); NEUTROPHILS % 64.1 % (36.0-66.0); PLATELET COUNT, AUTOMATED 264 10^3/uL (150-450); RED BLOOD COUNT 3.54 10^6/uL (4.00-5.40); WHITE BLOOD COUNT 4.9 10^3/uL (4.0-10.0)
[2018-11-03 14:05] LABS: BASO % 3.3 % (0.0-1.0)
== END ==
LOC: M SHH 12:06
PROVIDERS: ATTEND Internal Medicine
DX: J90 Pleural effusion, not elsewhere classified (principal)

== ENCOUNTER → 2018-11-10 | Outpatient (REF) | payer MEDICARE, MEDICAID ==
[2018-11-10 14:00] LABS: HEMATOCRIT 39.2 % (36.0-47.0); HEMOGLOBIN 11.3 g/dl (12.0-15.5); MEAN CORPUSCULAR HGB CONC 28.8 g/dl (32.0-36.5); MEAN CORPUSCULAR VOLUME 97.3 fl (80.0-96.0); PLATELET COUNT, AUTOMATED 379 10^3/uL (150-450); RED BLOOD COUNT 4.03 10^6/uL (4.00-5.40); WHITE BLOOD COUNT 4.8 10^3/uL (4.0-10.0)
[2018-11-10 14:43] LABS: ALBUMIN 2.7 GM/DL (3.2-5.2); ALT/SGPT 28 U/L (12-78); BILIRUBIN,TOTAL 0.3 MG/DL (0.2-1.0); BLOOD UREA NITROGEN 10 MG/DL (7-18); CALCIUM LEVEL 9.1 MG/DL (8.8-10.2); CARBON DIOXIDE LEVEL 28 MEQ/L (21-32); CHLORIDE LEVEL 109 MEQ/L (98-107); GLOMERULAR FILTRATION RATE > 60.0 (>45); GLUCOSE, FASTING 54 MG/DL (70-100); POTASSIUM SERUM 4.1 MEQ/L (3.5-5.1); SODIUM LEVEL 143 MEQ/L (136-145); TOTAL PROTEIN 6.2 GM/DL (6.4-8.2)
== END ==
LOC: M SFHCPLAZ 11:47
PROVIDERS: ATTEND Nurse Practitioner Adult Health
DX: E03.9 Hypothyroidism, unspecified (principal); J90 Pleural effusion, not elsewhere classified; E53.8 Deficiency of other specified B group vitamins
CPT/HCPCS: 36415; 80053; 84443; 85027; G0463

== ENCOUNTER → 2018-11-18 | Outpatient (POV) | payer MEDICARE, MEDICAID ==
[~2018-11-18] VITALS: Ht 170.2 cm; Wt 63.2 kg
[2018-11-18 10:26] VITALS: BP 127/71
--- NOTE | 2018-11-18 14:00 | IPNPDOC ---
Text Note Date of Service The patient was seen on 11/18/18. NOTE Patient feels well post empyema treatment. No shortness of breath or fevers. Completed IV antibiotic therapy. Would like right luke catheter removed. On examination: Patient appears well. No acute distress. No shortness of breath at rest. Right IJ Luke site looks clean, no redness or discharge. Procedure: The sutures securing the cath to the skin were cut. The catheter was removed in its entirety. A sterile dressing was applied to the site. Impression: Completed antibiotic therapy for empyema and right IJ Luke catheter was removed. No further follow-up required. Thank you for this referral. VS,Saule, I+O VS, Saule, I+O Vital Signs Date Time Temp Pulse Resp B/P (MAP) Pulse Ox O2 Delivery O2 Flow Rate FiO2 11/18/18 10:26 97.4 101 18 127/71 (89) 97 VIVIAN GRULLON MD Nov 18, 2018 14:00
== END ==
LOC: M IRPOV 10:11
PROVIDERS: ATTEND Radiology Diagnostic Radiology
DX: Z45.2 Encounter for adjustment and management of vascular access device (principal); J43.9 Emphysema, unspecified

== ENCOUNTER → 2018-12-09 | Outpatient (CLI) | payer MEDICARE ==
[~2018-12-09] MED LIST changes: +CHOL100029 PO; -VITAD1000T PO
--- NOTE | 2018-12-09 13:10 | REP ---
Clinical: Pleural effusion. Technique: PA and lateral. Comparison: 10/25/2018. Findings: Pleuroparenchymal changes involving the right mid to lower lung zone with elevation of the right hemithorax appreciated. Findings appear improved when compared to most recent prior examination and no obvious residual right-sided hydropneumothorax is identified. Left hemithorax is clear/stable including stable granuloma. Impression: 1. Improved aeration to the right hemithorax with continued mid to lower lobe pleuroparenchymal changes and elevation to the right hemidiaphragm. 2. Previously noted right hydropneumothorax not identified. Electronically Signed by Tico Overton MD 12/09/2018 01:01 P
--- NOTE | 2018-12-09 14:58 | REPMRS ---
Patient History The patient states she has not had a clinical breast exam in over a year. Patient had first child at age 32. Family history of unknown cancer in father, colorectal cancer at age 55 in brother. Taking unspecified hormones for 10 years. 3D TOMOSYNTHESIS WAS PERFORMED. The [facility] lifetime risk for breast cancer is 6.4%. Digital Mammo Screening Bilat: December 09, 2018 - Exam #: [id number] Bilateral CC and MLO view(s) were taken. Technologist: Georgina Roque, Technologist FINDINGS: There are scattered fibroglandular densities. There has been no change in the appearance of the mammogram from the prior studies. There is a mild amount of residual fibroglandular tissue which is fairly symmetric. There is no interval development of dominant mass, architectural distortion, or clustered microcalcification suggestive of malignancy. Assessment: BI-RADS/ACR category 1 mammogram. Negative Mammogram. Recommendation Routine screening mammogram in 1 year (for women over age 40). This mammogram was interpreted with the aid of an FDA-approved computer-aided dectection system. Electronically Signed By: Lei Wyatt MD 12/09/18 [id number]
== END ==
LOC: M RAD 12:07
PROVIDERS: ATTEND Nurse Practitioner Adult Health
DX: Z12.31 Encounter for screening mammogram for malignant neoplasm of breast (principal); Z80.0 Family history of malignant neoplasm of digestive organs; J90 Pleural effusion, not elsewhere classified; J84.10 Pulmonary fibrosis, unspecified

== ENCOUNTER → 2019-04-28 | Outpatient (REF) | payer MEDICARE, MEDICAID ==
[~2019-04-28] MED LIST changes: +OMEP1CAP73 PO; -OMEP20CA4 PO
[2019-04-28 16:24] LABS: ALT/SGPT 45 U/L (12-78); BILIRUBIN,TOTAL 0.3 MG/DL (0.2-1.0); BLOOD UREA NITROGEN 10 MG/DL (7-18); CALCIUM LEVEL 8.6 MG/DL (8.8-10.2); CARBON DIOXIDE LEVEL 26 MEQ/L (21-32); CHLORIDE LEVEL 110 MEQ/L (98-107); CREATININE FOR GFR 0.55 MG/DL (0.55-1.30); GLOMERULAR FILTRATION RATE > 60.0 (>39); GLUCOSE, FASTING 70 MG/DL (70-100); POTASSIUM SERUM 3.8 MEQ/L (3.5-5.1); SODIUM LEVEL 142 MEQ/L (136-145); TOTAL PROTEIN 6.1 GM/DL (6.4-8.2)
[2019-04-28 16:26] LABS: VITAMIN B12 LEVEL 1274 PG/ML (247-911)
== END ==
LOC: M SFHCPLAZ 14:17
PROVIDERS: ATTEND Nurse Practitioner Adult Health
DX: E03.9 Hypothyroidism, unspecified (principal); E53.8 Deficiency of other specified B group vitamins

== ENCOUNTER → 2019-05-18 | Outpatient (CLI) | payer MEDICARE, MEDICAID ==
[~2019-05-18] MED LIST changes: +E-Z-GAS II EFFERVESCENT PACKET (SODIUM BICARB./CITRIC ACID/SIMETHICONE) As Ordered ONE; +E-Z-HD 98% w/w 340GM SUSP BTL As Ordered ONE; +E-Z-PAQUE 96% w/w SUSP 176GM BTL As Ordered ONE
--- NOTE | 2019-05-18 17:33 | REP ---
UPPER GI SINGLE CONTRAST AND SMALL BOWEL FOLLOW-THROUGH The procedure was performed under the direct supervision of Dr. Olguin. The images were reviewed with Dr. Olguin. The advance scout film shows no organomegaly or pathological masses. The intestinal gas pattern is nonspecific. There are surgical clips noted in the epigastric region consistent with the patient's history of Damon-en-Y gastric bypass. Liquid barium was administered in the right lateral recumbent and left lateral recumbent positions. The oral and pharyngeal stages of deglutition are unremarkable. Esophageal transport is prompt and efficient and there is no esophagitis stricture mucosal ring or hiatal hernia. Gastroesophageal reflux is not demonstrated on this examination. Contrast passes through the stomach pouch without delay. There is slight dilation of the jejunum at the gastrojejunal anastomosis. The efferent and afferent loops are unremarkable. There is no evidence of fistula, stricture or obstruction. The barium column was followed through the small bowel to the level of the terminal ileum. Small bowel transit time is approximately 1 hour. During fluoroscopy gentle palpation shows all loops are freely movable and pliable. There are no fixed or angulated loops. The small bowel mucosal pattern is normal in course and caliber. There is no transition to suggest a partial small-bowel obstruction. Spot filming of the terminal ileum shows it to be unremarkable. Impression: Postsurgical changes consistent with the patient's history of Damon-en-Y gastric bypass. There is slight elevation of the jejunum at the gastrojejunal anastomosis. There is no evidence of stricture or obstruction. There is no evidence of fistula. 2.5 minutes of fluoroscopy time was utilized for this procedure. Electronically Signed by XOCHILT Posada 05/18/2019 04:29 P Electronically Signed by Corbin Olguin MD 05/18/2019 05:23 P
== END ==
LOC: M RAD 09:46
PROVIDERS: ATTEND Internal Medicine Gastroenterology
DX: K21.0 Gastro-esophageal reflux disease with esophagitis (principal)

== ENCOUNTER → 2019-06-23 | Outpatient (REF) | payer MEDICARE, MEDICAID ==
[~2019-06-23] MED LIST changes: -E-Z-GAS II EFFERVESCENT PACKET (SODIUM BICARB./CITRIC ACID/SIMETHICONE) As Ordered ONE; -E-Z-HD 98% w/w 340GM SUSP BTL As Ordered ONE; -E-Z-PAQUE 96% w/w SUSP 176GM BTL As Ordered ONE
[2019-06-23 12:34] LABS: BLOOD UREA NITROGEN 11 MG/DL (7-18); CALCIUM LEVEL 9.3 MG/DL (8.8-10.2); CARBON DIOXIDE LEVEL 28 MEQ/L (21-32); CHLORIDE LEVEL 110 MEQ/L (98-107); CREATININE FOR GFR 0.49 MG/DL (0.55-1.30); GLOMERULAR FILTRATION RATE > 60.0 (>39); GLUCOSE, FASTING 84 MG/DL (70-100); POTASSIUM SERUM 4.2 MEQ/L (3.5-5.1); SODIUM LEVEL 140 MEQ/L (136-145)
== END ==
LOC: M SFHCPLAZ 11:15
PROVIDERS: ATTEND Family Medicine
DX: R05 Cough (principal)

== ENCOUNTER → 2019-06-23 | Outpatient (CLI) | payer MEDICARE, MEDICAID ==
--- NOTE | 2019-06-23 12:08 | REPPI ---
CHEST X-RAY: Two views. HISTORY: Cough. Comparison chest x-ray December 09, 2018. FINDINGS: Right hemidiaphragm remains somewhat elevated. There is linear fibrosis in the right base. Granulomatous calcification is seen in the left lower lobe unchanged. No infiltrate is seen. Heart is not enlarged. The aorta is tortuous. IMPRESSION: No infiltrate seen. The linear fibrosis right base elevated right hemidiaphragm. Old granuloma left lower lobe. Surgical clips in the upper abdomen. Electronically Signed by Corbin Olguin MD 06/23/2019 04:28 P
== END ==
LOC: M PLAIMG 11:18
PROVIDERS: ATTEND Family Medicine
DX: R05 Cough (principal)
CPT/HCPCS: 71046; G0463

== ENCOUNTER → 2020-01-04 | Outpatient (CLI) | payer MEDICARE, MEDICAID ==
[~2020-01-04] MED LIST changes: +AMLO1TAB24 PO; -AMLO5TAB6 PO; +D31000TA2 PO; +FAMO20TA PO; +HYDR-4517 PO; +PANT40TA29 PO; -PANT40TA3 PO
[2020-01-04 16:25] LABS: HEMATOCRIT 38.1 % (36.0-47.0); HEMOGLOBIN 11.9 g/dl (12.0-15.5); MEAN CORPUSCULAR HEMOGLOBIN 29.3 pg (27.0-33.0); MEAN CORPUSCULAR HGB CONC 31.2 g/dl (32.0-36.5); MEAN CORPUSCULAR VOLUME 93.8 fl (80.0-96.0); PLATELET COUNT, AUTOMATED 420 10^3/uL (150-450); RED BLOOD COUNT 4.06 10^6/uL (4.00-5.40); WHITE BLOOD COUNT 6.8 10^3/uL (4.0-10.0)
[2020-01-04 17:00] LABS: ALBUMIN 2.8 GM/DL (3.2-5.2); ALT/SGPT 28 U/L (12-78); BILIRUBIN,TOTAL 0.3 MG/DL (0.2-1.0); BLOOD UREA NITROGEN 11 MG/DL (7-18); CALCIUM LEVEL 8.7 MG/DL (8.8-10.2); CARBON DIOXIDE LEVEL 25 MEQ/L (21-32); CHLORIDE LEVEL 109 MEQ/L (98-107); CREATININE FOR GFR 0.56 MG/DL (0.55-1.30); FERRITIN 44 NG/ML (8-252); GLOMERULAR FILTRATION RATE > 60.0 (>39); GLUCOSE, FASTING 77 MG/DL (70-100); IRON (FE) 24 UG/DL (50-170); PERCENT SATURATION 6.9 % (13.2-45.0); POTASSIUM SERUM 3.9 MEQ/L (3.5-5.1); SODIUM LEVEL 141 MEQ/L (136-145); THYROID STIMULATING HORMONE 0.745 uIU/ML (0.358-3.740); TOTAL IRON BINDING CAPACITY 346 UG/DL (250-450)
== END ==
LOC: M PLALAB 13:50
PROVIDERS: ATTEND Nurse Practitioner Adult Health
DX: E03.9 Hypothyroidism, unspecified (principal); I10 Essential (primary) hypertension; K56.699 Other intestinal obstruction unspecified as to partial versus complete obstruction; Z98.84 Bariatric surgery status

== ENCOUNTER → 2020-01-14 | Outpatient (CLI) | payer MEDICARE, MEDICAID | LOC: M LABSMTC 10:46 | PROVIDERS: ATTEND Anesthesiology | DX: Z01.812 Encounter for preprocedural laboratory examination (principal); Z20.828 Contact with and (suspected) exposure to other viral communicable diseases | CPT/HCPCS: C9803; U0003 ==

== ENCOUNTER 2020-01-19 12:38 | Day surgery (SDC) | payer MEDICARE, MEDICAID ==
[~2020-01-19] VITALS: Ht 170.2 cm; Wt 79.4 kg
[~2020-01-19 12:38] MED LIST changes: +NS 1,000 ML IV ONE
[2020-01-19] MEDS ORDERED: LIDOCAINE 2% 100MG/5ML SDV (FOR ANES.) As Ordered ONE (14:01)
[2020-01-19] MEDS ORDERED: propofoL 200 MG/20 ML VIAL As Ordered ONE ×3 (14:01→14:54)
[2020-01-19] MEDS ORDERED: fentaNYL 100 MCG/2 ML INJECTION (J3010) As Ordered ONE (14:02)
[2020-01-19] MEDS ORDERED: LABETALOL 100MG/20ML VIAL As Ordered ONE (14:53)
--- NOTE | 2020-01-19 15:38 | ROOR ---
Patient Name: Patria Hernandez Procedure Date: 01/19/2020 2:26 PM Date of : 1950 Age: 69 Room: [facility] Gender: Female Note Status: Finalized Procedure: Upper GI endoscopy Indications: Epigastric abdominal pain, Nausea with vomiting Providers: Cornell Smith MD Referring MD: Johnna Blue NP Requesting Provider: Medicines: Monitored Anesthesia Care Complications: No immediate complications. Procedure: Pre-Anesthesia Assessment: - Prior to the procedure, a History and Physical was performed, and patient medications and allergies were reviewed. The patient is competent. The risks and benefits of the procedure and the sedation options and risks were discussed with the patient. All questions were answered and informed consent was obtained. Patient identification and proposed procedure were verified by the physician, the nurse and the anesthesiologist in the procedure room. Mental Status Examination: alert and oriented. Airway Examination: normal oropharyngeal airway and neck mobility. Respiratory Examination: clear to auscultation. CV Examination: normal. Prophylactic Antibiotics: The patient does not require prophylactic antibiotics. Prior Anticoagulants: The patient has taken no previous anticoagulant or antiplatelet agents. ASA Grade Assessment: II - A patient with mild systemic disease. After reviewing the risks and benefits, the patient was deemed in satisfactory condition to undergo the procedure. The anesthesia plan was to use monitored anesthesia care (MAC). Immediately prior to administration of medications, the patient was re-assessed for adequacy to receive sedatives. The heart rate, respiratory rate, oxygen saturations, blood pressure, adequacy of pulmonary ventilation, and response to care were monitored throughout the procedure. The physical status of the patient was re-assessed after the procedure. The Endoscope was introduced through the mouth, and advanced to the afferent and efferent jejunal loops. The upper GI endoscopy was accomplished without difficulty. The patient tolerated the procedure well. Findings: A moderate-sized area of extrinsic compression was found in the lower third of the esophagus. One non-obstructing non-bleeding cratered gastric ulcer of moderate to significant severity with no stigmata of bleeding was found at the anastomosis. The lesion was 15 mm in largest dimension. There is no evidence of perforation. Localized severe inflammation characterized by deep ulcerations was found at the anastomosis. Evidence of a gastrojejunostomy was found in the gastric fundus. This was characterized by congestion, friable mucosa, a hemorrhagic appearance, inflammation and severe stenosis. A TTS dilator was passed through the scope. Dilation with a 10 mm anastomotic balloon dilator was performed. The dilation site was examined following endoscope reinsertion and showed mild mucosal disruption, no bleeding and no perforation. A severe benign-appearing, intrinsic stenosis that was traversed after dilation was found in the jejunum. Biopsies were taken with a cold forceps for histology. Noted another moderate stenosis in jejunum which is distal to anastomotic stenosis, which is also biopspies. Impression: - Extrinsic compression in the lower third of the esophagus. - Non-obstructing non-bleeding gastric ulcer with no stigmata of bleeding. NSAID induced etiology. There is no evidence of perforation. - Caustic gastritis. - A gastrojejunostomy was found, characterized by friable mucosa, a hemorrhagic appearance, inflammation, congestion and severe stenosis. Dilated. - Jejunal stenosis. Biopsied. Recommendation: - Patient has a contact number available for emergencies. The signs and symptoms of potential delayed complications were discussed with the patient. Return to normal activities tomorrow. Written discharge instructions were provided to the patient. - Clear liquid diet for 1 day, then advance as tolerated to full liquid diet for 6 weeks. - Continue present medications. - Use Protonix (pantoprazole) 40 mg PO twice daily - to be taken in morning (1/2 hour before breakfast) and at bedtime ( atleast 3 hours after last meal). - Use sucralfate suspension 1 gram PO QID. - Change all home medications to liquid formulations Or crush them and taken them with apple sauce. Dont swallow any solid pills. - Refer to a surgeon to consider revision surgery if patient agrees. - Repeat upper endoscopy in 6 weeks to check healing. - Telephone GI clinic for pathology results in 2 weeks. - Return to primary care physician. Cornell Smith MD Cornell Smith MD 01/19/2020 3:38:09 PM Electronically signed by Cornell Smith MD Number of Addenda: 0 Note Initiated On: 01/19/2020 2:26 PM Estimated Blood Loss: Estimated blood loss was minimal.
[2020-01-19 15:56] VITALS: BP 187/91
== END 2020-01-19 15:58 | disposition home or self-care (01) ==
LOC: M OPP 12:38
PROVIDERS: ATTEND Internal Medicine Gastroenterology
DX: K22.2 Esophageal obstruction (principal); K25.9 Gastric ulcer, unspecified as acute or chronic, without hemorrhage or perforation; Z98.0 Intestinal bypass and anastomosis status; K56.699 Other intestinal obstruction unspecified as to partial versus complete obstruction; R10.13 Epigastric pain; R11.2 Nausea with vomiting, unspecified; T39.395S Adverse effect of other nonsteroidal anti-inflammatory drugs [NSAID], sequela; T54.94XA Toxic effect of unspecified corrosive substance, undetermined, initial encounter; T28.7XXA Corrosion of other parts of alimentary tract, initial encounter; Z79.891 Long term (current) use of opiate analgesic; Z79.899 Other long term (current) drug therapy
CPT/HCPCS: 43239; 43245; 88305; J3010

== ENCOUNTER → 2020-02-01 | Outpatient (CLI) | payer MEDICARE ==
[~2020-02-01] MED LIST changes: -NS 1,000 ML IV ONE
[2020-02-01 12:45] LABS: BASO % 1.1 % (0.0-1.0); EOS % 5.1 % (0.0-3.0); HEMATOCRIT 40.4 % (36.0-47.0); HEMOGLOBIN 12.3 g/dl (12.0-15.5); MEAN CORPUSCULAR HEMOGLOBIN 29.6 pg (27.0-33.0); MEAN CORPUSCULAR HGB CONC 30.4 g/dl (32.0-36.5); MEAN CORPUSCULAR VOLUME 97.3 fl (80.0-96.0); MONO % 10.9 % (0.0-5.0); NEUTROPHILS % 49.7 % (36.0-66.0); PLATELET COUNT, AUTOMATED 361 10^3/uL (150-450); RED BLOOD COUNT 4.15 10^6/uL (4.00-5.40); WHITE BLOOD COUNT 5.3 10^3/uL (4.0-10.0)
[2020-02-01 12:46] LABS: BASO # 0.1 10^3/uL (0.0-0.2); EOS # 0.3 10^3/uL (0.0-0.5); LYMPH # 1.8 10^3/uL (1.5-5.0); MONO # 0.6 10^3/uL (0.0-0.8); NEUTROPHILS # 2.6 10^3/uL (1.5-8.5)
[2020-02-01 13:05] LABS: BLOOD UREA NITROGEN 12 MG/DL (7-18); CREATININE FOR GFR 0.67 MG/DL (0.55-1.30); GLOMERULAR FILTRATION RATE > 60.0 (>39); IRON (FE) 52 UG/DL (50-170); PERCENT SATURATION 12.3 % (13.2-45.0); TOTAL IRON BINDING CAPACITY 423 UG/DL (250-450)
== END ==
LOC: M WUC 09:18
PROVIDERS: ATTEND Internal Medicine Gastroenterology
DX: K28.9 Gastrojejunal ulcer, unspecified as acute or chronic, without hemorrhage or perforation (principal); K31.6 Fistula of stomach and duodenum; Z98.84 Bariatric surgery status

== ENCOUNTER → 2020-03-28 | Outpatient (CLI) | payer MEDICARE, MEDICAID ==
[~2020-03-28] MED LIST changes: +CYAN500T14 PO; -CYAN500T8 PO
== END ==
LOC: M PT 08:09
PROVIDERS: ATTEND Nurse Practitioner Adult Health
DX: M21.061 Valgus deformity, not elsewhere classified, right knee (principal)

== ENCOUNTER → 2020-05-31 | Outpatient (CLI) | payer MEDICARE, MEDICAID ==
[~2020-05-31] MED LIST changes: +GASTROGRAFIN SOLUTION 30ML (Q9963) As Ordered ONE; +ISOVUE-370 76% 100ML VIAL As Ordered ONE
--- NOTE | 2020-05-31 16:52 | REP ---
INDICATION: ABD PAIN, NAUSEA W/ VOMITING, DYSPHAGIA. COMPARISON: 02/28/2016 at [facility] TECHNIQUE: Oral Gastrografin mixture per our bowel contrast protocol and bolus 100 mL Isovue 370 scanning through the abdomen and pelvis with both coronal and sagittal reconstructions provided. FINDINGS: CT abdomen: There is elevation of the right diaphragm as on the previous study. Lung bases show some dependent atelectatic changes. Adjacent there is a densely calcified granuloma posteriorly in the left lower lobe. No effusion or acute infiltrate. Heart is not grossly enlarged. There is no pericardial thickening or effusion. I see no hiatal hernia. There is no hepatosplenomegaly, focal hepatic mass or intrahepatic biliary dilatation. Clips from prior cholecystectomy are noted. No splenomegaly is seen or focal lesion. There is no upper abdominal ascites. Pancreas shows mild prominence of the common duct which is normal for post cholecystectomy. No mass, ductal dilatation, stone, peripancreatic fluid or pathologic sized adenopathy. There are some scattered mesenteric nodes which are unchanged in size from the previous study and which I would regard as normal. There is no hiatal hernia. Clips from gastric bypass cause significant spray artifact and limit evaluation of the stomach. Anastomotic suture lines for the gastrojejunostomy appear grossly intact. Small bowel loops contrast or fluid-filled without abnormal dilatation. The lung windows show no perforation or free air within the abdomen or pelvis. No generalized ascites. No mesenteric edema. The aorta has atherosclerotic calcifications but no aneurysm. Adrenal glands normal. The kidneys show a stable 5 mm focus of fat in the upper pole on the left representing a small angiomyolipoma, unchanged. Extrarenal pelvis on the left. No hydronephrosis, stone, other renal mass or cyst. I do not see dilated ureters or ureteral stone. Bone windows show diffuse vacuum phenomena and degenerative disc changes in the lumbar and lower thoracic spine with a rotatory scoliotic curvature. This is all unchanged. CT pelvis: Bone windows show the sacrum, iliac bones pelvis and hips without fracture or focal lesion there are degenerative changes in the SI joints and hips. The distal left colon and sigmoid were unremarkable the abdominal portions of colon were also intact small bowel loops are fluid or contrast filled throughout the pelvis and are not dilated. No appendix is seen. Uterus is midline not enlarged no pelvic mass. No pelvic free fluid or adenopathy. I see no ventral or inguinal hernia nor inguinal adenopathy IMPRESSION: 1. 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 No other renal mass, cyst, hydronephrosis or stone. 2. A bladder well filled without stone, mass or layered debris. 3. Elevated right diaphragm, prior cholecystectomy and gastric bypass changes all stable. No colon or small bowel abnormalities. No aortic aneurysm. Appendix absent. 4. Degenerative changes spine and hips. No new or acute finding. <Electronically signed by Yariel Barnes > 05/31/20 [id number]
== END ==
LOC: M RAD 13:32
PROVIDERS: ATTEND Physician Assistant Surgical
DX: D17.71 Benign lipomatous neoplasm of kidney (principal); R13.10 Dysphagia, unspecified; R10.9 Unspecified abdominal pain; R11.2 Nausea with vomiting, unspecified; Z91.49 Other personal history of psychological trauma, not elsewhere classified; Z98.84 Bariatric surgery status; Z90.89 Acquired absence of other organs
CPT/HCPCS: 74177; Q9963; Q9967

== ENCOUNTER → 2020-08-24 | Outpatient (REF) | payer MEDICARE, MEDICAID ==
[~2020-08-24] MED LIST changes: -GASTROGRAFIN SOLUTION 30ML (Q9963) As Ordered ONE; -ISOVUE-370 76% 100ML VIAL As Ordered ONE
[2020-08-24 17:56] LABS: ALBUMIN 3.4 GM/DL (3.2-5.2); ALT/SGPT 33 U/L (12-78); BILIRUBIN,TOTAL 0.2 MG/DL (0.2-1.0); BLOOD UREA NITROGEN 19 MG/DL (7-18); CALCIUM LEVEL 8.7 MG/DL (8.8-10.2); CARBON DIOXIDE LEVEL 25 MEQ/L (21-32); CHLORIDE LEVEL 111 MEQ/L (98-107); CREATININE FOR GFR 0.82 MG/DL (0.55-1.30); GLOMERULAR FILTRATION RATE > 60.0 (>39); GLUCOSE, FASTING 79 MG/DL (70-100); POTASSIUM SERUM 4.4 MEQ/L (3.5-5.1); SODIUM LEVEL 141 MEQ/L (136-145); THYROID STIMULATING HORMONE 0.648 uIU/ML (0.358-3.740); TOTAL PROTEIN 6.3 GM/DL (6.4-8.2); VITAMIN B12 LEVEL 1117 PG/ML (247-911)
== END ==
LOC: M SFHCPLAZ 13:52
PROVIDERS: ATTEND Nurse Practitioner Adult Health
DX: E03.9 Hypothyroidism, unspecified (principal); E53.8 Deficiency of other specified B group vitamins; Z98.84 Bariatric surgery status
CPT/HCPCS: 36415; 80053; 82607; 84443; G0463

== ENCOUNTER → 2020-10-17 | Outpatient (CLI) | payer MEDICARE, MEDICAID ==
[~2020-10-17] MED LIST changes: -DICL25TA PO; +DICL25TA11 PO
== END ==
LOC: M LABSMTC 11:05
PROVIDERS: ATTEND Anesthesiology
DX: Z01.818 Encounter for other preprocedural examination (principal); Z11.52 Encounter for screening for COVID-19

== ENCOUNTER 2020-10-21 10:18 | Day surgery (SDC) | payer MEDICARE, MEDICAID ==
[~2020-10-21] VITALS: Ht 170.2 cm; Wt 78.5 kg
[~2020-10-21 10:18] MED LIST changes: +DICL25TA PO; -DICL25TA11 PO; +LIDOCAINE 2% 100MG/5ML SDV (FOR ANES.) As Ordered ONE; +NS 1,000 ML IV ONE; +propofoL 200 MG/20 ML VIAL As Ordered ONE
[2020-10-21] MEDS ORDERED: FURO40TA2 PO (10:40)
[2020-10-21] MEDS ORDERED: ZOFR4TAB16 PO (10:40)
[2020-10-21] MEDS ORDERED: LABETALOL 100MG/20ML VIAL As Ordered ONE (11:32)
[2020-10-21] MEDS ORDERED: propofoL 200 MG/20 ML VIAL As Ordered ONE (11:36)
--- NOTE | 2020-10-21 12:03 | ROOR ---
Patient Name: Patria Hernandez Procedure Date: 10/21/2020 11:16 AM Date of : 1950 Age: 70 Room: [facility] Gender: Female Note Status: Finalized Procedure: Upper GI endoscopy Indications: For therapy of post-surgical anastomotic stenosis, Follow-up of gastrojejunal ulcer Providers: Cornell Smith MD Referring MD: Johnna Blue NP Requesting Provider: Medicines: Monitored Anesthesia Care Complications: No immediate complications. Procedure: Pre-Anesthesia Assessment: - Prior to the procedure, a History and Physical was performed, and patient medications and allergies were reviewed. The patient is competent. The risks and benefits of the procedure and the sedation options and risks were discussed with the patient. All questions were answered and informed consent was obtained. Patient identification and proposed procedure were verified by the physician, the nurse and the anesthesiologist in the procedure room. Mental Status Examination: alert and oriented. Airway Examination: normal oropharyngeal airway and neck mobility. Respiratory Examination: clear to auscultation. CV Examination: normal. Prophylactic Antibiotics: The patient does not require prophylactic antibiotics. Prior Anticoagulants: The patient has taken no previous anticoagulant or antiplatelet agents. ASA Grade Assessment: III - A patient with severe systemic disease. After reviewing the risks and benefits, the patient was deemed in satisfactory condition to undergo the procedure. The anesthesia plan was to use monitored anesthesia care (MAC). Immediately prior to administration of medications, the patient was re-assessed for adequacy to receive sedatives. The heart rate, respiratory rate, oxygen saturations, blood pressure, adequacy of pulmonary ventilation, and response to care were monitored throughout the procedure. The physical status of the patient was re-assessed after the procedure. The Endoscope was introduced through the mouth, and advanced to the second part of duodenum. The upper GI endoscopy was accomplished without difficulty. The patient tolerated the procedure well. Findings: LA Grade B (one or more mucosal breaks greater than 5 mm, not extending between the tops of two mucosal folds) esophagitis with no bleeding was found in the lower third of the esophagus. Patchy moderate inflammation characterized by erythema, friability and granularity was found in the gastric fundus, in the gastric body and at the anastomosis. A large healed ulcer was found at the anastomosis. The scar tissue was healthy in appearance. Adjacent mucosal findings include congestion. Evidence of a gastrojejunostomy was found in the stomach. This was characterized by congestion, erosion, severe stenosis and an intact staple line. A TTS dilator was passed through the scope. Dilation with a 15-16.5-18 mm balloon dilator was performed to 15 mm. The dilation site was examined following endoscope reinsertion and showed mild mucosal disruption, moderate improvement in luminal narrowing and no perforation. A mild benign-appearing, intrinsic stenosis that was traversed was found in the jejunum. Impression: - LA Grade B reflux esophagitis. - Gastritis. - Scar in the anastomosis. - A gastrojejunostomy was found, characterized by congestion, erosion, severe stenosis and an intact staple line. Dilated. - Jejunal stenosis. - No specimens collected. Recommendation: - Patient has a contact number available for emergencies. The signs and symptoms of potential delayed complications were discussed with the patient. Return to normal activities tomorrow. Written discharge instructions were provided to the patient. - Mechanical soft diet and Post gastric bypass diet (small frequent meals and avoid fatty/ fried foods). - Continue present medications. - Use Protonix (pantoprazole) 40 mg PO twice daily - to be taken in morning (1/2 hour before breakfast) and at bedtime ( atleast 3 hours after last meal). - Use sucralfate suspension 1 gram PO BID. - Return to GI clinic if persistent symptoms or new symptoms. - Repeat upper endoscopy in 1 year to evaluate the response to therapy. - Return to primary care physician. Procedure Code(s): --- Professional --- 56220, Esophagogastroduodenoscopy, flexible, transoral; with dilation of gastric/duodenal stricture(s) (eg, balloon, bougie) Diagnosis Code(s): --- Professional --- K21.0, Gastro-esophageal reflux disease with esophagitis K29.70, Gastritis, unspecified, without bleeding K31.89, Other diseases of stomach and duodenum Z98.0, Intestinal bypass and anastomosis status K56.699, Other intestinal obstruction unspecified as to partial versus complete obstruction K91.89, Other postprocedural complications and disorders of digestive system K28.9, Gastrojejunal ulcer, unspecified as acute or chronic, without hemorrhage or perforation CPT copyright 2019 [employer]. All rights reserved. The codes documented in this report are preliminary and upon gluing machine adjuster review may be revised to meet current compliance requirements. Cornell Smith MD Cornell Smith MD 10/21/2020 12:03:09 PM Electronically signed by Cornell Smith MD Number of Addenda: 0 Note Initiated On: 10/21/2020 11:16 AM Estimated Blood Loss: Estimated blood loss was minimal.
[2020-10-21 12:10] VITALS: BP 164/81
== END 2020-10-21 12:20 | disposition home or self-care (01) ==
LOC: M OPP 10:18
PROVIDERS: ATTEND Internal Medicine Gastroenterology
DX: K21.00 Gastro-esophageal reflux disease with esophagitis, without bleeding (principal); K29.70 Gastritis, unspecified, without bleeding; K31.89 Other diseases of stomach and duodenum; Z98.0 Intestinal bypass and anastomosis status; K56.699 Other intestinal obstruction unspecified as to partial versus complete obstruction; K91.89 Other postprocedural complications and disorders of digestive system; K28.9 Gastrojejunal ulcer, unspecified as acute or chronic, without hemorrhage or perforation; Z79.891 Long term (current) use of opiate analgesic; Z79.899 Other long term (current) drug therapy; Z98.84 Bariatric surgery status

== ENCOUNTER → 2021-02-07 | Outpatient (REF) | payer MEDICARE, MEDICAID ==
[~2021-02-07] MED LIST changes: -LIDOCAINE 2% 100MG/5ML SDV (FOR ANES.) As Ordered ONE; -NS 1,000 ML IV ONE; -propofoL 200 MG/20 ML VIAL As Ordered ONE
== END ==
LOC: M SFHCPLAZ 09:49
PROVIDERS: ATTEND Physician Assistant
DX: J06.9 Acute upper respiratory infection, unspecified (principal)

== ENCOUNTER → 2021-06-07 | Outpatient (CLI) | payer MEDICARE, MEDICAID ==
[~2021-06-07] MED LIST changes: -D31000TA2 PO; -DICL25TA PO; +DICL25TA11 PO; +VITA100093 PO
[2021-06-07 19:01] LABS: HEMATOCRIT 40.9 % (36.0-47.0); HEMOGLOBIN 13.1 g/dl (12.0-15.5); MEAN CORPUSCULAR HEMOGLOBIN 31.8 pg (27.0-33.0); MEAN CORPUSCULAR VOLUME 99.3 fl (80.0-96.0); PLATELET COUNT, AUTOMATED 290 10^3/uL (150-450); RED BLOOD COUNT 4.12 10^6/uL (4.00-5.40); WHITE BLOOD COUNT 5.7 10^3/uL (4.0-10.0)
[2021-06-07 19:25] LABS: ALBUMIN 3.3 GM/DL (3.2-5.2); ALT/SGPT 37 U/L (12-78); BILIRUBIN,TOTAL 0.3 MG/DL (0.2-1.0); BLOOD UREA NITROGEN 18 MG/DL (7-18); CALCIUM LEVEL 9.1 MG/DL (8.8-10.2); CARBON DIOXIDE LEVEL 26 MEQ/L (21-32); CHLORIDE LEVEL 111 MEQ/L (98-107); CREATININE FOR GFR 0.64 MG/DL (0.55-1.30); FERRITIN 26 NG/ML (8-252); GLOMERULAR FILTRATION RATE > 60.0 (>39); GLUCOSE, FASTING 75 MG/DL (70-100); IRON (FE) 59 UG/DL (50-170); POTASSIUM SERUM 4.2 MEQ/L (3.5-5.1); SODIUM LEVEL 143 MEQ/L (136-145); THYROID STIMULATING HORMONE 0.546 uIU/ML (0.358-3.740); TOTAL IRON BINDING CAPACITY 394 UG/DL (250-450); TOTAL PROTEIN 6.1 GM/DL (6.4-8.2)
[2021-06-07 19:28] LABS: VITAMIN B12 LEVEL > 2000 PG/ML (247-911)
[2021-06-08 11:15] LABS: TOTAL 25(OH) VITAMIN D 55.4 NG/ML (30.0-100.0)
== END ==
LOC: M PLALAB 15:45
PROVIDERS: ATTEND Nurse Practitioner Adult Health
DX: K25.4 Chronic or unspecified gastric ulcer with hemorrhage (principal); E53.8 Deficiency of other specified B group vitamins; E03.9 Hypothyroidism, unspecified; Z98.84 Bariatric surgery status; Z79.899 Other long term (current) drug therapy

== ENCOUNTER → 2021-11-27 | Outpatient (CLI) | payer MEDICARE, MEDICAID ==
[2021-11-27 13:53] LABS: HEMATOCRIT 40.4 % (36.0-47.0); HEMOGLOBIN 13.1 g/dl (12.0-15.5); MEAN CORPUSCULAR HEMOGLOBIN 34.7 pg (27.0-33.0); MEAN CORPUSCULAR HGB CONC 32.4 g/dl (32.0-36.5); MEAN CORPUSCULAR VOLUME 107.2 fl (80.0-96.0); PLATELET COUNT, AUTOMATED 281 10^3/uL (150-450); RED BLOOD COUNT 3.77 10^6/uL (4.00-5.40); WHITE BLOOD COUNT 3.7 10^3/uL (4.0-10.0)
[2021-11-27 14:08] LABS: HEMOGLOBIN A1c 4.9 %
[2021-11-27 14:36] LABS: ALBUMIN 3.4 GM/DL (3.2-5.2); ALT/SGPT 17 U/L (12-78); BILIRUBIN,TOTAL 0.4 MG/DL (0.2-1.0); BLOOD UREA NITROGEN 15 MG/DL (7-18); CARBON DIOXIDE LEVEL 24 MEQ/L (21-32); CHLORIDE LEVEL 109 MEQ/L (98-107); CHOLESTEROL LEVEL 170 MG/DL (<200); CHOLESTEROL RISK RATIO 2.656 (<5); CREATININE FOR GFR 0.73 MG/DL (0.55-1.30); FERRITIN 30 NG/ML (8-252); GLOMERULAR FILTRATION RATE > 60.0 (>39); GLUCOSE, FASTING 78 MG/DL (70-100); HDL CHOLESTEROL 64 MG/DL (>40); IRON (FE) 81 UG/DL (50-170); LDL CHOLESTEROL 80 MG/DL (<100); NON-HDL-C 106 MG/DL; POTASSIUM SERUM 4.4 MEQ/L (3.5-5.1); SODIUM LEVEL 139 MEQ/L (136-145); TOTAL IRON BINDING CAPACITY 426 UG/DL (250-450); TRIGLYCERIDES LEVEL 129 MG/DL (<150)
[2021-11-27 15:10] LABS: TOTAL 25(OH) VITAMIN D 47.4 NG/ML (30.0-100.0); VITAMIN B12 LEVEL 334 PG/ML (247-911)
== END ==
LOC: M PLALAB 08:33
PROVIDERS: ATTEND Nurse Practitioner Adult Health
DX: K25.4 Chronic or unspecified gastric ulcer with hemorrhage (principal); Z98.84 Bariatric surgery status; E53.8 Deficiency of other specified B group vitamins; E03.9 Hypothyroidism, unspecified; Z13.220 Encounter for screening for lipoid disorders

== ENCOUNTER → 2022-07-04 | Outpatient (CLI) | payer MEDICARE, MEDICAID ==
[2022-07-04 17:37] LABS: ALBUMIN 3.3 G/DL (3.2-5.2); ALKALINE PHOSPHATASE 117 U/L (46-116); ALT/SGPT 20 U/L (7.0-40); AST/SGOT 33 U/L (<34); BILIRUBIN,TOTAL 0.2 MG/DL (0.3-1.2); BLOOD UREA NITROGEN 13 MG/DL (9-23); CALCIUM LEVEL 8.4 MG/DL (8.3-10.6); CARBON DIOXIDE LEVEL 27 MMOL/L (20-31); CHLORIDE LEVEL 107 MMOL/L (98-107); CHOLESTEROL LEVEL 156 MG/DL (<200); CHOLESTEROL RISK RATIO 2.26 (<5); CREATININE FOR GFR 0.57 MG/DL (0.55-1.30); GLOMERULAR FILTRATION RATE > 60.0 (>39); GLUCOSE, FASTING 82 MG/DL (74-106); HDL CHOLESTEROL 68.8 MG/DL (>40); HEMATOCRIT 40.2 % (36.0-47.0); HEMOGLOBIN 12.9 g/dl (12.0-15.5); IRON (FE) 53 UG/DL (50-170); LDL CHOLESTEROL 68.8 MG/DL (<100); MEAN CORPUSCULAR HEMOGLOBIN 35.7 pg (27.0-33.0); MEAN CORPUSCULAR HGB CONC 32.1 g/dl (32.0-36.5); MEAN CORPUSCULAR VOLUME 111.4 fl (80.0-96.0); NON-HDL-C 87.2 MG/DL; PERCENT SATURATION 15.2 % (13.2-45.0); PLATELET COUNT, AUTOMATED 249 10^3/uL (150-450); POTASSIUM SERUM 3.9 MMOL/L (3.5-5.1); RED BLOOD COUNT 3.61 10^6/uL (4.00-5.40); SODIUM LEVEL 139 MMOL/L (136-145); TOTAL IRON BINDING CAPACITY 349 UG/DL (250-425); TOTAL PROTEIN 5.8 G/DL (5.7-8.2); TRIGLYCERIDES LEVEL 92 MG/DL (<150); WHITE BLOOD COUNT 3.4 10^3/uL (4.0-10.0)
[2022-07-04 17:38] LABS: FERRITIN 41.3 NG/ML (7.3-270.7); THYROID STIMULATING HORMONE 0.696 uIU/ML (0.55-4.78); TOTAL 25(OH) VITAMIN D 41.7 NG/ML (20.0-100.0)
[2022-07-04 18:14] LABS: HEMOGLOBIN A1c 4.7 % (4.0-6.0)
== END ==
LOC: M PLALAB 15:45
PROVIDERS: ATTEND Nurse Practitioner Adult Health
DX: K25.4 Chronic or unspecified gastric ulcer with hemorrhage (principal); E03.9 Hypothyroidism, unspecified; Z98.84 Bariatric surgery status; Z13.220 Encounter for screening for lipoid disorders; Z79.899 Other long term (current) drug therapy

== ENCOUNTER → 2023-03-05 | Outpatient (REF) | payer MEDICARE, MEDICAID ==
[~2023-03-05] MED LIST changes: +POTA-298 PO; -POTA1TAB14 PO
[2023-03-05 17:41] LABS: HEMATOCRIT 42.6 % (36.0-47.0); HEMOGLOBIN 13.5 g/dl (12.0-15.5); MEAN CORPUSCULAR HEMOGLOBIN 32.3 pg (27.0-33.0); MEAN CORPUSCULAR HGB CONC 31.7 g/dl (32.0-36.5); MEAN CORPUSCULAR VOLUME 101.9 fl (80.0-96.0); PLATELET COUNT, AUTOMATED 342 10^3/uL (150-450); RED BLOOD COUNT 4.18 10^6/uL (4.00-5.40); WHITE BLOOD COUNT 4.6 10^3/uL (4.0-10.0)
[2023-03-05 18:00] LABS: HEMOGLOBIN A1c 4.7 % (4.0-6.0)
[2023-03-05 18:08] LABS: ALBUMIN 3.5 G/DL (3.2-5.2); ALKALINE PHOSPHATASE 105 U/L (46-116); ALT/SGPT 20 U/L (7.0-40); AST/SGOT 26 U/L (<34); BILIRUBIN,TOTAL 0.3 MG/DL (0.3-1.2); BLOOD UREA NITROGEN 12 MG/DL (9-23); CALCIUM LEVEL 8.8 MG/DL (8.3-10.6); CARBON DIOXIDE LEVEL 31 MMOL/L (20-31); CHLORIDE LEVEL 104 MMOL/L (98-107); CREATININE FOR GFR 0.64 MG/DL (0.55-1.30); FERRITIN 14.3 NG/ML (7.3-270.7); GLOMERULAR FILTRATION RATE > 60.0 (>39); GLUCOSE, FASTING 73 MG/DL (74-106); POTASSIUM SERUM 4.6 MMOL/L (3.5-5.1); SODIUM LEVEL 141 MMOL/L (136-145); THYROID STIMULATING HORMONE 1.216 uIU/ML (0.55-4.78); TOTAL 25(OH) VITAMIN D 33.2 NG/ML (20.0-100.0); TOTAL PROTEIN 6.2 G/DL (5.7-8.2)
[2023-03-05 18:09] LABS: VITAMIN B12 LEVEL 301 PG/ML (211-911)
== END ==
LOC: M LABDRAWP 16:51
PROVIDERS: ATTEND Nurse Practitioner Adult Health
DX: K25.4 Chronic or unspecified gastric ulcer with hemorrhage (principal); Z98.84 Bariatric surgery status; E03.9 Hypothyroidism, unspecified; E53.8 Deficiency of other specified B group vitamins; Z79.899 Other long term (current) drug therapy

== ENCOUNTER → 2023-07-04 | Outpatient (REF) | payer MEDICARE, MEDICAID ==
[2023-07-04 18:07] LABS: HEMATOCRIT 39.9 % (36.0-47.0); HEMOGLOBIN 12.9 g/dl (12.0-15.5); MEAN CORPUSCULAR HEMOGLOBIN 32.6 pg (27.0-33.0); MEAN CORPUSCULAR HGB CONC 32.3 g/dl (32.0-36.5); MEAN CORPUSCULAR VOLUME 100.8 fl (80.0-96.0); PLATELET COUNT, AUTOMATED 329 10^3/uL (150-450); RED BLOOD COUNT 3.96 10^6/uL (4.00-5.40)
[2023-07-04 18:40] LABS: ALBUMIN 3.4 G/DL (3.2-5.2); ALKALINE PHOSPHATASE 110 U/L (46-116); ALT/SGPT 24 U/L (7.0-40); AST/SGOT 23 U/L (<34); BILIRUBIN,TOTAL 0.3 MG/DL (0.3-1.2); BLOOD UREA NITROGEN 15 MG/DL (9-23); CALCIUM LEVEL 8.8 MG/DL (8.3-10.6); CARBON DIOXIDE LEVEL 26 MMOL/L (20-31); CHLORIDE LEVEL 108 MMOL/L (98-107); FERRITIN 17.8 NG/ML (7.3-270.7); GLOMERULAR FILTRATION RATE > 60.0 (>39); GLUCOSE, FASTING 92 MG/DL (74-106); POTASSIUM SERUM 4.1 MMOL/L (3.5-5.1); SODIUM LEVEL 140 MMOL/L (136-145); THYROID STIMULATING HORMONE 1.292 uIU/ML (0.55-4.78); TOTAL 25(OH) VITAMIN D 45.4 NG/ML (20.0-100.0)
[2023-07-04 18:41] LABS: VITAMIN B12 LEVEL 355 PG/ML (211-911)
[2023-07-04 19:15] LABS: HEMOGLOBIN A1c 4.8 % (4.0-6.0)
== END ==
LOC: M LABDRAWP 17:14
PROVIDERS: ATTEND Nurse Practitioner Adult Health
DX: K25.4 Chronic or unspecified gastric ulcer with hemorrhage (principal); Z98.84 Bariatric surgery status; E03.9 Hypothyroidism, unspecified; E53.8 Deficiency of other specified B group vitamins; Z79.899 Other long term (current) drug therapy

== ENCOUNTER → 2024-01-01 | Outpatient (CLI) | payer MEDICARE, MEDICAID ==
[2024-01-01 18:08] LABS: HEMOGLOBIN 10.5 g/dl (12.0-15.5); MEAN CORPUSCULAR HEMOGLOBIN 34.9 pg (27.0-33.0); MEAN CORPUSCULAR HGB CONC 32.8 g/dl (32.0-36.5); MEAN CORPUSCULAR VOLUME 106.3 fl (80.0-96.0); PLATELET COUNT, AUTOMATED 429 10^3/uL (150-450); RED BLOOD COUNT 3.01 10^6/uL (4.00-5.40); WHITE BLOOD COUNT 4.4 10^3/uL (4.0-10.0)
[2024-01-01 18:43] LABS: ALBUMIN 2.7 G/DL (3.2-5.2); ALKALINE PHOSPHATASE 169 U/L (46-116); ALT/SGPT 23 U/L (7.0-40); AST/SGOT 30 U/L (<34); BILIRUBIN,TOTAL 0.3 MG/DL (0.3-1.2); BLOOD UREA NITROGEN 9 MG/DL (9-23); CALCIUM LEVEL 8.4 MG/DL (8.3-10.6); CARBON DIOXIDE LEVEL 22 MMOL/L (20-31); CHLORIDE LEVEL 110 MMOL/L (98-107); CREATININE FOR GFR 0.67 MG/DL (0.55-1.30); FREE T4 1.54 NG/DL (0.89-1.76); GLOMERULAR FILTRATION RATE > 60.0 (>39); GLUCOSE, FASTING 86 MG/DL (74-106); SODIUM LEVEL 140 MMOL/L (136-145); TOTAL PROTEIN 5.3 G/DL (5.7-8.2)
[2024-01-01 18:44] LABS: FERRITIN 27.9 NG/ML (7.3-270.7); THYROID STIMULATING HORMONE 0.289 uIU/ML (0.55-4.78)
== END ==
LOC: M PLALAB 15:49
PROVIDERS: ATTEND Nurse Practitioner Adult Health
DX: K25.4 Chronic or unspecified gastric ulcer with hemorrhage (principal); Z98.84 Bariatric surgery status; E03.9 Hypothyroidism, unspecified

== ENCOUNTER 2024-01-05 10:15 | Inpatient (IN) | payer MEDICARE, MEDICAID ==
[~2024-01-05] VITALS: Ht 170.2 cm; Wt 84.8 kg
[2024-01-05 11:09] LABS: BASO % 0.1 % (0.0-1.0); EOS # 0.1 10^3/uL (0.0-0.5); EOS % 0.7 % (0.0-3.0); HEMATOCRIT 34.6 % (36.0-47.0); HEMOGLOBIN 11.2 g/dl (12.0-15.5); LYMPH # 0.7 10^3/uL (1.5-5.0); LYMPH % 8.6 % (24.0-44.0); MEAN CORPUSCULAR HGB CONC 32.4 g/dl (32.0-36.5); MEAN CORPUSCULAR VOLUME 105.2 fl (80.0-96.0); MONO % 11.9 % (2.0-8.0); NEUTROPHILS # 6.4 10^3/uL (1.5-8.5); PLATELET COUNT, AUTOMATED 548 10^3/uL (150-450); RED BLOOD COUNT 3.29 10^6/uL (4.00-5.40); WHITE BLOOD COUNT 8.3 10^3/uL (4.0-10.0)
[2024-01-05] MEDS: NS 2,140 ML in IV 1 EA IV ONE (11:15)
[2024-01-05 11:50] LABS: ALBUMIN 2.4 G/DL (3.2-5.2); ALKALINE PHOSPHATASE 216 U/L (46-116); ALT/SGPT 127 U/L (7.0-40); AST/SGOT 177 U/L (<34); BILIRUBIN,DIRECT 0.2 MG/DL (<0.4); BILIRUBIN,TOTAL 0.4 MG/DL (0.3-1.2); BLOOD UREA NITROGEN 40 MG/DL (9-23); CALCIUM LEVEL 8.1 MG/DL (8.3-10.6); CARBON DIOXIDE LEVEL 18 MMOL/L (20-31); CHLORIDE LEVEL 111 MMOL/L (98-107); GLOMERULAR FILTRATION RATE 17.6 (>39); GLUCOSE, FASTING 88 MG/DL (74-106); POTASSIUM SERUM 3.2 MMOL/L (3.5-5.1); SODIUM LEVEL 142 MMOL/L (136-145); TOTAL PROTEIN 5.5 G/DL (5.7-8.2)
[2024-01-05 11:53] LABS: VENOUS HCO3 15.6 MMOL/L (23.0-27.0); VENOUS O2 SATURATION 79.7 % (60.0-80.0); VENOUS PARTIAL PRESSURE CO2 37.6 mmHg (38.0-50.0); VENOUS PARTIAL PRESSURE O2 47.2 mmHg (30.0-50.0); VENOUS PH 7.236 UNITS (7.330-7.430); VENOUS STANDARD HCO3 15.4 MMOL/L; VENOUS TOTAL CO2 16.8 MMOL/L (24.0-28.0)
[2024-01-05 11:53] LABS: INR 1.03; PARTIAL THROMBOPLASTIN TIME 43.8 SECONDS (24.8-34.2); PROTHROMBIN TIME 13.2 SECONDS (12.5-14.5)
[2024-01-05 11:58] LABS: PROCALCITONIN >50.00 ng/ml
[2024-01-05 13:04] LABS: APPEARANCE, URINE HAZY (CLEAR); BACTERIA, URINE AUTO 1+ (NEGATIVE); BILIRUBIN, URINE AUTO 1+ (NEGATIVE); BLOOD, URINE BLOOD NEGATIVE (NEGATIVE); COLOR, URINE YELLOW (YELLOW); GLUCOSE, URINE (UA) AUTO NEGATIVE (NEGATIVE); KETONE, URINE AUTO TRACE mg/dL (NEGATIVE); LEUKOCYTE ESTERASE, URINE AUTO TRACE (NEGATIVE); MUCUS, URINE SMALL (NEGATIVE); NITRITE, URINE AUTO NEGATIVE (NEGATIVE); PROTEIN, URINE AUTO 1+ mg/dL (NEGATIVE); RBC, URINE AUTO 1 /HPF (0-3); SPECIFIC GRAVITY URINE AUTO 1.026 (1.002-1.035); SQUAMOUS EPITHELIAL CELL UR AU 2 /HPF (0-6); UROBILINOGEN, URINE AUTO 0.2 mg/dL (0.0-2.0); WBC, URINE AUTO 9 /HPF (0-3)
[2024-01-05] MEDS: cefTRIAXone SOD 2 GM in D5W MINI-BAG PLUS 50 ML IV ONE (13:25)
[2024-01-05 14:19] LABS: MAGNESIUM LEVEL 1.9 MG/DL (1.8-2.4)
[2024-01-05 14:21] LABS: CPK CREATINE PHOSPHOKINASE 627 U/L (34-145)
[2024-01-05 14:26] LABS: OSMOLALITY URINE 325 MOSM/KG (50-1400)
[2024-01-05 14:32] LABS: OSMOLALITY SERUM 303 MOSM/KG (280-301)
[2024-01-05 14:37] LABS: SODIUM,RANDOM URINE 23 MMOL/L
[2024-01-05 14:47] LABS: CREATININE,RANDOM URINE 148.6 MG/DL
[2024-01-05 15:26] LABS: HEPATITIS B SURFACE ANTIGEN NEGATIVE (NEGATIVE)
[2024-01-05 15:30] VITALS: BP 128/59; TEMP 97.1; O2SAT 90
[2024-01-05 15:31] LABS: IRON (FE) 6 UG/DL (50-170); PERCENT SATURATION 2.3 % (13.2-45.0); PHOSPHORUS LEVEL 6.1 MG/DL (2.4-5.1); TOTAL IRON BINDING CAPACITY 259 UG/DL (250-425)
[2024-01-05 15:33] LABS: FERRITIN 98.4 NG/ML (7.3-270.7)
[2024-01-05 15:44] LABS: FOLATE 13.79 NG/ML (>5.4); VITAMIN B12 LEVEL > 2000 PG/ML (211-911)
[2024-01-05 15:48] LABS: HEPATITIS B CORE ANTIBODY IGM NEGATIVE (NEGATIVE); HEPATITIS C VIRUS ABY INDEX < 0.02 INDEX (<0.8)
[2024-01-05] MEDS ORDERED: MISO200T83 PO (16:30)
[2024-01-05] MEDS ORDERED: XTAM27CA PO (16:30)
[2024-01-05] MEDS ORDERED: VALS1TAB66 PO (16:30)
[2024-01-05] MEDS ORDERED: HYDR-4571 PO (16:30)
[2024-01-05] MEDS ORDERED: HOME MED LIST COMPLETE! XX SCH (16:35)
[2024-01-05] MEDS: NS 1,000 ML IV SCH (16:44)
[2024-01-05] MEDS: POTASSIUM CHLORIDE 10MEQ SR TABLET PO ONE (16:45)
[2024-01-05] MEDS: FAMOTIDINE 20 MG TAB PO SCH (20:00)
[2024-01-05] MEDS: oxyCODONE 15MG CR TAB PO SCH (20:00)
[2024-01-05] MEDS: SUCRALFATE 1 GM TAB PO SCH (20:00)
[2024-01-05 20:10] VITALS: BP 136/58; TEMP 97; O2SAT 100
[2024-01-05] MEDS ORDERED: ENTER DRUG NAME HERE (PATIENT'S OWN MED) XX SCH (21:00)
[2024-01-05] MEDS: HEPARIN SOD (PORCINE) 5000UNITS/ML 1ML VIAL/SYRINGE SC SCH (22:59)
[2024-01-05 23:42] VITALS: BP 137/63; TEMP 96.9; O2SAT 96
[2024-01-06 03:48] VITALS: BP 145/71; TEMP 97; O2SAT 95
[2024-01-06] MEDS: LEVOTHYROXINE 25MCG TABLET (0.025MG) PO SCH (05:50)
[2024-01-06 06:45] LABS: PROCALCITONIN 28.88 ng/ml
[2024-01-06 06:46] LABS: ALBUMIN 2.1 G/DL (3.2-5.2); BILIRUBIN,TOTAL 0.3 MG/DL (0.3-1.2); CALCIUM LEVEL 8.8 MG/DL (8.3-10.6); CREATININE FOR GFR 1.49 MG/DL (0.55-1.30); GLOMERULAR FILTRATION RATE 36.4 (>39); POTASSIUM SERUM 3.1 MMOL/L (3.5-5.1); TOTAL PROTEIN 4.9 G/DL (5.7-8.2)
[2024-01-06] MEDS: DEXTROSE 50% 50ML SYRINGE IV STA (07:36)
[2024-01-06 07:39] VITALS: BP 149/63; TEMP 97.6; O2SAT 96
[2024-01-06] MEDS ORDERED: GLUCOSE 4 GM CHEW PO PRN (07:40)
[2024-01-06] MEDS ORDERED: GLUCAGON INJ 1MG VIAL SC PRN (07:40)
[2024-01-06] MEDS ORDERED: cefTRIAXone SOD 2 GM in D5W MINI-BAG PLUS 50 ML IV SCH (09:00)
[2024-01-06] MEDS: POTASSIUM CHLORIDE 10MEQ SR TABLET PO ONE (09:58)
[2024-01-06] MEDS: VITAMIN D 1,000 INTERNATIONAL UNITS TABLET PO SCH (09:58)
[2024-01-06] MEDS: PRAVASTATIN 20 MG TAB PO SCH (09:58)
[2024-01-06] MEDS: CYANOCOBALAMIN 500 MCG TAB PO SCH (09:59)
[2024-01-06] MEDS: PANTOPRAZOLE 40MG TAB (PROTONIX) PO SCH (10:00)
[2024-01-06] MEDS ORDERED: DEXTROSE 50% 50ML SYRINGE IV PRN (10:00)
[2024-01-06] MEDS: LR 1,000 ML IV SCH (10:01)
[2024-01-06 10:15] LABS: VENOUS BASE EXCESS -13.6 (-2.0-2.0); VENOUS HCO3 12.8 MMOL/L (23.0-27.0); VENOUS O2 SATURATION 98.9 % (60.0-80.0); VENOUS PARTIAL PRESSURE CO2 31.4 mmHg (38.0-50.0); VENOUS PARTIAL PRESSURE O2 223.9 mmHg (30.0-50.0); VENOUS PH 7.227 UNITS (7.330-7.430); VENOUS STANDARD HCO3 13.9 MMOL/L; VENOUS TOTAL CO2 13.7 MMOL/L (24.0-28.0)
[2024-01-06 10:32] LABS: BASO % 0.6 % (0.0-1.0); EOS # 0.1 10^3/uL (0.0-0.5); EOS % 2.6 % (0.0-3.0); HEMATOCRIT 31.7 % (36.0-47.0); HEMOGLOBIN 10.2 g/dl (12.0-15.5); LYMPH # 0.8 10^3/uL (1.5-5.0); MEAN CORPUSCULAR HEMOGLOBIN 34.3 pg (27.0-33.0); MEAN CORPUSCULAR HGB CONC 32.2 g/dl (32.0-36.5); MEAN CORPUSCULAR VOLUME 106.7 fl (80.0-96.0); MONO # 0.6 10^3/uL (0.0-0.8); NEUTROPHILS # 3.7 10^3/uL (1.5-8.5); NEUTROPHILS % 68.3 % (36.0-66.0); PLATELET COUNT, AUTOMATED 488 10^3/uL (150-450); RED BLOOD COUNT 2.97 10^6/uL (4.00-5.40); WHITE BLOOD COUNT 5.4 10^3/uL (4.0-10.0)
[2024-01-06] MEDS: POTASSIUM CHLORIDE IV SCH (13:46)
[2024-01-06] MEDS: D5W IV SCH (13:46)
[2024-01-06] MEDS: SODIUM BICARBONATE IV SCH (13:46)
[2024-01-06 16:00] VITALS: BP 149/63; TEMP 97.6; O2SAT 96
[2024-01-06] MEDS: FLUBLOK(EGGFREE) TRIVAL(24-25) VACCINE PF 0.5ML SYRINGE 18YRS & OLDER IM.IMMUN ONE (18:34)
[2024-01-07] VITALS (8 sets, daily range): BP systolic 136–168; BP diastolic 71–96; TEMP 96.4–97.8; O2SAT 91–97
[2024-01-07] MEDS: QUEtiapine FUMARATE 12.5 MG HALF-TAB PO ONE (03:00)
[2024-01-07] MEDS: NORCO, ANEXSIA 5/325MG TABLET (HYDROcodone/ACETAMINOPHEN) PO PRN (05:31)
[2024-01-07 08:15] LABS: TOTAL PROTEIN,RANDOM URINE 61.6 MG/DL (0.0-14.0)
[2024-01-07] MEDS: FLUBLOK(EGGFREE) TRIVAL(24-25) VACCINE PF 0.5ML SYRINGE 18YRS & OLDER IM.IMMUN ONE (09:00)
[2024-01-07] MEDS: cefTRIAXone SOD 1 GM in D5W MINI-BAG PLUS 50 ML IV SCH (09:12)
[2024-01-07 10:00] LABS: CHLORIDE,RANDOM URINE < 20 MMOL/L
[2024-01-07] MEDS: FERRIC CARBOXYMALTOSE INJ 750 MG, VIAL MATE ADAPTER 1 EACH in NS 250 ML IV ONE (11:27)
[2024-01-07 12:34] LABS: VENOUS BASE EXCESS -6.3 (-2.0-2.0); VENOUS O2 SATURATION 85.1 % (60.0-80.0); VENOUS PARTIAL PRESSURE CO2 42.9 mmHg (38.0-50.0); VENOUS PARTIAL PRESSURE O2 51.1 mmHg (30.0-50.0); VENOUS PH 7.287 UNITS (7.330-7.430); VENOUS STANDARD HCO3 19.1 MMOL/L; VENOUS TOTAL CO2 21.3 MMOL/L (24.0-28.0)
[2024-01-07 12:44] LABS: HEMATOCRIT 29.1 % (36.0-47.0); HEMOGLOBIN 9.3 g/dl (12.0-15.5); MEAN CORPUSCULAR HEMOGLOBIN 34.3 pg (27.0-33.0); MEAN CORPUSCULAR VOLUME 107.4 fl (80.0-96.0); PLATELET COUNT, AUTOMATED 450 10^3/uL (150-450); RED BLOOD COUNT 2.71 10^6/uL (4.00-5.40)
[2024-01-07 13:10] LABS: ALBUMIN 2.1 G/DL (3.2-5.2); ALKALINE PHOSPHATASE 185 U/L (46-116); ALT/SGPT 77 U/L (7.0-40); AST/SGOT 63 U/L (<34); BILIRUBIN,TOTAL 0.4 MG/DL (0.3-1.2); BLOOD UREA NITROGEN 25 MG/DL (9-23); CALCIUM LEVEL 8.7 MG/DL (8.3-10.6); CARBON DIOXIDE LEVEL 23 MMOL/L (20-31); CHLORIDE LEVEL 115 MMOL/L (98-107); CREATININE FOR GFR 0.75 MG/DL (0.55-1.30); GLOMERULAR FILTRATION RATE > 60.0 (>39); GLUCOSE, FASTING 84 MG/DL (74-106); MAGNESIUM LEVEL 1.7 MG/DL (1.8-2.4); POTASSIUM SERUM 3.9 MMOL/L (3.5-5.1); PTH INTACT 38.1 PG/ML (18.5-88.0); SODIUM LEVEL 143 MMOL/L (136-145); TOTAL PROTEIN 4.8 G/DL (5.7-8.2)
[2024-01-07 13:35] LABS: BASOPHILS 1 % (0-1); EOSINOPHILS 4 % (0-3); LYMPHOCYTES 10 % (16-44); METAMYELOCYTES 1 % (0-0); MONOCYTES 6 % (0-5); MYELOCYTES 3 % (0-0); NEUTROPHILS 74 % (28-66)
[2024-01-07 13:38] LABS: PLATELET ESTIMATE NORMAL (NORMAL)
[2024-01-07] MEDS: ACETAMINOPHEN 325 MG TAB PO PRN (14:09)
[2024-01-07] MEDS: LACTULOSE 20GM/30ML SYRUP UDC PO ONE (14:09)
[2024-01-07] MEDS: QUEtiapine FUMARATE 12.5 MG HALF-TAB PO SCH (21:17)
[2024-01-07] MEDS: CEFDINIR 300 MG CAP (OMNICEF) PO SCH (21:17)
[2024-01-08] VITALS (7 sets, daily range): BP systolic 140–171; BP diastolic 82–99; TEMP 97.2–97.5; O2SAT 96–99
[2024-01-08 05:44] LABS: HEMATOCRIT 29.3 % (36.0-47.0); HEMOGLOBIN 9.6 g/dl (12.0-15.5); MEAN CORPUSCULAR HEMOGLOBIN 33.7 pg (27.0-33.0); MEAN CORPUSCULAR HGB CONC 32.8 g/dl (32.0-36.5); MEAN CORPUSCULAR VOLUME 102.8 fl (80.0-96.0); PLATELET COUNT, AUTOMATED 515 10^3/uL (150-450); RED BLOOD COUNT 2.85 10^6/uL (4.00-5.40); WHITE BLOOD COUNT 4.7 10^3/uL (4.0-10.0)
[2024-01-08 05:55] LABS: ALKALINE PHOSPHATASE 173 U/L (46-116); ALT/SGPT 69 U/L (7.0-40); AST/SGOT 51 U/L (<34); BILIRUBIN,TOTAL 0.4 MG/DL (0.3-1.2); BLOOD UREA NITROGEN 17 MG/DL (9-23); CALCIUM LEVEL 8.9 MG/DL (8.3-10.6); CARBON DIOXIDE LEVEL 25 MMOL/L (20-31); CHLORIDE LEVEL 115 MMOL/L (98-107); CREATININE FOR GFR 0.61 MG/DL (0.55-1.30); GLOMERULAR FILTRATION RATE > 60.0 (>39); GLUCOSE, FASTING 75 MG/DL (74-106); MAGNESIUM LEVEL 1.7 MG/DL (1.8-2.4); POTASSIUM SERUM 4.1 MMOL/L (3.5-5.1); SODIUM LEVEL 148 MMOL/L (136-145); TOTAL PROTEIN 4.7 G/DL (5.7-8.2)
[2024-01-08 06:43] LABS: ANISOCYTOSIS 1+; EOSINOPHILS 4 % (0-3); HYPOCHROMASIA 1+; LYMPHOCYTES 25 % (16-44); METAMYELOCYTES 1 % (0-0); MONOCYTES 9 % (0-5); MYELOCYTES 5 % (0-0); PLATELET ESTIMATE INCREASED (NORMAL)
[2024-01-08 06:45] LABS: NEUTROPHILS 55 % (28-66)
[2024-01-08] MEDS ORDERED: MIRALAX *UNIT DOSE* 17GM PACKET PO SCH (09:00)
[2024-01-08] MEDS ORDERED: AMLO1TAB24 PO (10:36)
[2024-01-08] MEDS ORDERED: CEFD300CAP PO (10:36)
[2024-01-08] MEDS ORDERED: MM S100C PO (10:36)
[2024-01-08] MEDS ORDERED: MIRA3350 PO (10:36)
[2024-01-08] MEDS: amLODIPine 5 MG TAB PO ONE (10:40)
[2024-01-08] MEDS: KCL 20MEQ IN D5W 1000ML 1,000 ML IV SCH (11:39)
[2024-01-08] MEDS: SENOKOT S TAB PO SCH (13:11)
[2024-01-08] MEDS: MIRALAX *UNIT DOSE* 17GM PACKET PO ONE (13:11)
[2024-01-08] MEDS ORDERED: MAG SULF 1GM/100ML (MAG RUN) 1 GM in IV 1 EA IV ONE (15:00)
[2024-01-08] MEDS: MAGNESIUM OXIDE 400MG TAB (MAG-OX) PO ONE (15:10)
[2024-01-09] MEDS: HALOPERIDOL LACTATE 5MG/ML VIAL IV ONE (03:00)
[2024-01-09 03:59] VITALS: BP 154/90; TEMP 97.3; O2SAT 99
[2024-01-09 05:55] LABS: BASO # 0.1 10^3/uL (0.0-0.2); BASO % 1.2 % (0.0-1.0); EOS # 0.2 10^3/uL (0.0-0.5); EOS % 2.5 % (0.0-3.0); HEMATOCRIT 31.2 % (36.0-47.0); HEMOGLOBIN 9.9 g/dl (12.0-15.5); LYMPH # 1.1 10^3/uL (1.5-5.0); LYMPH % 15.7 % (24.0-44.0); MEAN CORPUSCULAR HEMOGLOBIN 33.9 pg (27.0-33.0); MEAN CORPUSCULAR HGB CONC 31.7 g/dl (32.0-36.5); MEAN CORPUSCULAR VOLUME 106.8 fl (80.0-96.0); MONO # 0.9 10^3/uL (0.0-0.8); MONO % 13.3 % (2.0-8.0); NEUTROPHILS % 58.1 % (36.0-66.0); PLATELET COUNT, AUTOMATED 500 10^3/uL (150-450); RED BLOOD COUNT 2.92 10^6/uL (4.00-5.40); WHITE BLOOD COUNT 6.9 10^3/uL (4.0-10.0)
[2024-01-09 06:25] LABS: ALKALINE PHOSPHATASE 170 U/L (46-116); ALT/SGPT 63 U/L (7.0-40); AST/SGOT 50 U/L (<34); BILIRUBIN,TOTAL 0.3 MG/DL (0.3-1.2); BLOOD UREA NITROGEN 9 MG/DL (9-23); CALCIUM LEVEL 8.8 MG/DL (8.3-10.6); CARBON DIOXIDE LEVEL 25 MMOL/L (20-31); CHLORIDE LEVEL 112 MMOL/L (98-107); CREATININE FOR GFR 0.47 MG/DL (0.55-1.30); GLOMERULAR FILTRATION RATE > 60.0 (>39); GLUCOSE, FASTING 72 MG/DL (74-106); MAGNESIUM LEVEL 1.6 MG/DL (1.8-2.4); POTASSIUM SERUM 4.5 MMOL/L (3.5-5.1); SODIUM LEVEL 142 MMOL/L (136-145); TOTAL PROTEIN 4.7 G/DL (5.7-8.2)
[2024-01-09 08:00] VITALS: BP 154/90; TEMP 97; O2SAT 100
[2024-01-09] MEDS: MIRALAX *UNIT DOSE* 17GM PACKET PO SCH (08:38)
[2024-01-09] MEDS: MAG SULF 1GM/100ML (MAG RUN) 1 GM in IV 1 EA IV SCH (08:43)
[2024-01-09] MEDS ORDERED: MAGN400T2 PO (10:17)
[2024-01-09] MEDS ORDERED: CEFD300CAP PO (10:17)
== END 2024-01-09 12:46 | disposition home or self-care (01) | DRG 682 ==
LOC: M ED 10:15 → M ED INP 14:05 → M PCU 15:16 → M MSPAV 01-07 16:59
PROVIDERS: ADMIT Internal Medicine; ATTEND Internal Medicine
DX: N17.9 Acute kidney failure, unspecified (principal); G93.41 Metabolic encephalopathy; N39.0 Urinary tract infection, site not specified; E87.20 Acidosis, unspecified; E87.0 Hyperosmolality and hypernatremia; K29.70 Gastritis, unspecified, without bleeding; E78.5 Hyperlipidemia, unspecified; D47.3 Essential (hemorrhagic) thrombocythemia; E03.9 Hypothyroidism, unspecified; E87.6 Hypokalemia; D50.9 Iron deficiency anemia, unspecified; I10 Essential (primary) hypertension; M81.0 Age-related osteoporosis without current pathological fracture; M17.0 Bilateral primary osteoarthritis of knee; E83.42 Hypomagnesemia; J84.10 Pulmonary fibrosis, unspecified; N20.0 Calculus of kidney; K76.0 Fatty (change of) liver, not elsewhere classified; Z79.899 Other long term (current) drug therapy; Z98.41 Cataract extraction status, right eye; B96.20 Unspecified Escherichia coli [E. coli] as the cause of diseases classified elsewhere

== ENCOUNTER 2024-05-06 19:12 | Emergency (ER) | payer MEDICARE, MEDICAID ==
[~2024-05-06] VITALS: Ht 170.2 cm; Wt 54.5 kg
[~2024-05-06 19:12] MED LIST changes: +CEFD300CAP PO; +HYDR-4571 PO; +MAGN400T2 PO; +MISO200T83 PO; +MM S100C PO; +VALS1TAB66 PO; +XTAM27CA PO
[2024-05-06 19:26] VITALS: TEMP 98.6
[2024-05-06 20:04] LABS: BASO # 0.1 10^3/uL (0.0-0.2); BASO % 0.6 % (0.0-1.0); EOS # 0.1 10^3/uL (0.0-0.5); EOS % 0.6 % (0.0-3.0); HEMATOCRIT 43.1 % (36.0-47.0); HEMOGLOBIN 14.4 g/dl (12.0-15.5); LYMPH # 0.8 10^3/uL (1.5-5.0); MEAN CORPUSCULAR HEMOGLOBIN 32.4 pg (27.0-33.0); MEAN CORPUSCULAR HGB CONC 33.4 g/dl (32.0-36.5); MEAN CORPUSCULAR VOLUME 96.9 fl (80.0-96.0); MONO # 0.4 10^3/uL (0.0-0.8); MONO % 5.3 % (2.0-8.0); NEUTROPHILS % 84.1 % (36.0-66.0); PLATELET COUNT, AUTOMATED 348 10^3/uL (150-450); RED BLOOD COUNT 4.45 10^6/uL (4.00-5.40); WHITE BLOOD COUNT 8.3 10^3/uL (4.0-10.0)
[2024-05-06] MEDS: ONDANSETRON 4MG 2ML VIAL IV ONE (20:07)
[2024-05-06 20:36] LABS: CK-MB VALUE MASS < 1.0 NG/ML (<3.6); LIPASE 34 U/L (12-53)
[2024-05-06 20:38] LABS: ALBUMIN 3.1 G/DL (3.2-5.2); ALKALINE PHOSPHATASE 110 U/L (35-104); ALT/SGPT 30 U/L (7.0-40); AST/SGOT 36 U/L (<34); BILIRUBIN,DIRECT 0.2 MG/DL (<0.4); BILIRUBIN,TOTAL 0.5 MG/DL (0.3-1.2); BLOOD UREA NITROGEN 15 MG/DL (9-23); CALCIUM LEVEL 9.5 MG/DL (8.3-10.6); CARBON DIOXIDE LEVEL 33 MMOL/L (20-31); CHLORIDE LEVEL 101 MMOL/L (98-107); CPK CREATINE PHOSPHOKINASE 29 U/L (34-145); CREATININE FOR GFR 0.85 MG/DL (0.55-1.30); GLOMERULAR FILTRATION RATE > 60.0 (>39); GLUCOSE, FASTING 137 MG/DL (74-106); MB/CK RELATIVE INDEX 3.44 (< OR =4); POTASSIUM SERUM 3.4 MMOL/L (3.5-5.1); SODIUM LEVEL 143 MMOL/L (136-145); TOTAL PROTEIN 6.1 G/DL (5.7-8.2)
[2024-05-06] MEDS: GASTROGRAFIN SOLUTION 30ML PO SCH (21:42)
[2024-05-06] MEDS ORDERED: ISOVUE-370 76% 100ML VIAL As Ordered ONE (23:13)
[2024-05-06 23:53] LABS: CK-MB VALUE MASS < 1.0 NG/ML (<3.6)
[2024-05-06 23:54] LABS: CPK CREATINE PHOSPHOKINASE 30 U/L (34-145); MB/CK RELATIVE INDEX 3.33 (< OR =4)
[2024-05-07] VITALS: BP 115/69; O2SAT 98
== END 2024-05-07 00:25 | disposition left against medical advice (07) ==
LOC: M ED 19:12 → EDBD 19:12 → M ED 05-07 00:25
DX: R11.10 Vomiting, unspecified (principal); E03.9 Hypothyroidism, unspecified; E78.5 Hyperlipidemia, unspecified; K21.9 Gastro-esophageal reflux disease without esophagitis; Z79.2 Long term (current) use of antibiotics; Z79.899 Other long term (current) drug therapy; Z98.84 Bariatric surgery status; Z53.9 Procedure and treatment not carried out, unspecified reason
CPT/HCPCS: 74177; 80048; 80076; 82550; 82553; 83690; 84484; 85025; 93041; 96374; 99284; J2405; Q9963; Q9967

== ENCOUNTER → 2024-07-06 | Outpatient (CLI) | payer MEDICARE, MEDICAID ==
[2024-07-06 15:12] LABS: HEMATOCRIT 42.4 % (36.0-47.0); HEMOGLOBIN 13.8 g/dl (12.0-15.5); MEAN CORPUSCULAR HGB CONC 32.5 g/dl (32.0-36.5); MEAN CORPUSCULAR VOLUME 98.4 fl (80.0-96.0); PLATELET COUNT, AUTOMATED 383 10^3/uL (150-450); RED BLOOD COUNT 4.31 10^6/uL (4.00-5.40); WHITE BLOOD COUNT 5.7 10^3/uL (4.0-10.0)
[2024-07-06 15:16] LABS: LIPASE 17 U/L (12-53)
[2024-07-06 15:18] LABS: ALBUMIN 2.4 G/DL (3.2-5.2); ALKALINE PHOSPHATASE 119 U/L (35-104); ALT/SGPT 24 U/L (7.0-40); AMYLASE 93 U/L (30-118); AST/SGOT 41 U/L (<34); BILIRUBIN,TOTAL 0.4 MG/DL (0.3-1.2); BLOOD UREA NITROGEN 15 MG/DL (9-23); CALCIUM LEVEL 9.3 MG/DL (8.3-10.6); CARBON DIOXIDE LEVEL 31 MMOL/L (20-31); CHLORIDE LEVEL 104 MMOL/L (98-107); CHOLESTEROL LEVEL 210 MG/DL (<200); CHOLESTEROL RISK RATIO 2.74 (<5); CREATININE FOR GFR 0.86 MG/DL (0.55-1.30); GLOMERULAR FILTRATION RATE > 60.0 (>39); GLUCOSE, FASTING 84 MG/DL (74-106); HDL CHOLESTEROL 76.4 MG/DL (>40); IRON (FE) 87 UG/DL (50-170); LDL CHOLESTEROL 110.8 MG/DL (<100); NON-HDL-C 133.6 MG/DL; POTASSIUM SERUM 4.9 MMOL/L (3.5-5.1); SODIUM LEVEL 142 MMOL/L (136-145); TOTAL PROTEIN 5.3 G/DL (5.7-8.2); TRIGLYCERIDES LEVEL 114 MG/DL (<150)
[2024-07-06 15:21] LABS: FERRITIN 292.1 NG/ML (7.3-270.7)
[2024-07-06 15:22] LABS: THYROID STIMULATING HORMONE 8.303 uIU/ML (0.55-4.78)
[2024-07-06 15:23] LABS: FREE T4 1.18 NG/DL (0.89-1.76); VITAMIN B12 LEVEL 530 PG/ML (211-911)
== END ==
LOC: M PLALAB 12:04
PROVIDERS: ATTEND Nurse Practitioner Adult Health
DX: I10 Essential (primary) hypertension (principal); D50.9 Iron deficiency anemia, unspecified; E78.2 Mixed hyperlipidemia; R11.14 Bilious vomiting; E53.8 Deficiency of other specified B group vitamins; E03.9 Hypothyroidism, unspecified; Z87.19 Personal history of other diseases of the digestive system